=== PATIENT | male | born 1945 | race Caucasian/White ===

== ENCOUNTER 2017-02-11 23:23 | Emergency (ER) | payer OTHER, MEDICARE ==
[~2017-02-11] VITALS: Ht 177.8 cm; Wt 87.3 kg
[2017-02-11 23:28] VITALS: TEMP 36.5; Ht 177.8 cm; Wt 87.3 kg
[2017-02-12 01:13] VITALS: BP 136/79; PULSE 64; O2SAT 97
--- NOTE | 2017-02-12 04:42 | EMERGENCY ROOM VISIT NOTE ---
History Report prepared by Mayito: Ashley Welch Under the Supervision of: Dr. Sadi Miller M.D. First contact with patient: 23:32 Chief Complaint: URINARY SYMPTOMS Stated Complaint: URINARY TRACT INFECTION History of Present Illness The patient is a 72 year old male who presents to the Emergency Room with complaints of worsening urinary symptoms starting 3 days ago. The patient states that he had a catheter placed following a parathyroid surgery. He states that this catheter was removed 3 days ago. The patient reports that since then he has had difficulty and pain urinating. He describes the pain as a pressure and burning sensation. The patient states that he was diagnosed with a UTI by Dr. Benjamin's office today. He reports that he was put on Cipro and cultures were taken. He reports that he has had this happen before and was put on antibiotics for it. He notes that they had difficulty placing the catheter in [place] last week. The patient currently rates his pain as a 6/10 in severity. The patient complains of low appetite and abdominal pain. Pt denies LOC, headache, fevers, chills, diaphoresis, visual changes, neck pain , chest pain, breathing difficulties, nausea, vomiting, back pain, melena, hematochezia, numbness, weakness, lymphadenopathy, rash, or other complaints. Source of History: patient Onset: 3 days ago Position: other (global) Symptom Intensity: 6/10 Quality: pressure, burning Timing: worsening Associated Symptoms: + abdominal pain Note: The patient complains of low appetite. Review of Systems See HPI for pertinent positives and negatives. A total of ten systems were reviewed and were otherwise negative. 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) (3) Urinary retention Surgical Problems: (1) [place] teeth removed Family History Cancer Heart disease Hypertension Social History Smoking Status: Former Smoker Alcohol Use: none Marital Status: Housing Status: lives with significant other Occupation Status: retired Current/Historical Medications Scheduled Aspirin (Aspirin Ec), 81 MG PO DAILY Calcium/Vitamin D (Os-[place] 500 Plus D), 1 TAB PO DAILY Ciprofloxacin Hcl (Cipro), 1 TAB PO BID Ezetimibe (Zetia), 10 MG PO DAILY Fish Oil ([place]-3), 2 CAP PO DAILY Multivitamin (Multivitamin), 1 TAB PO DAILY Tamsulosin Hcl (Flomax), 0.8 MG PO DAILY Scheduled PRN Acetaminophen (Tylenol), 650 MG PO Q4 PRN for Pain or Fever Allergies Coded Allergies: Atorvastatin (Verified Adverse Reaction, Intermediate, myalgia, 02/12/17) Levofloxacin (Verified Adverse Reaction, Intermediate, myalgia, 02/12/17) OK TO GIVE LVQ PER DR RAMOS Physical Exam Vital Signs Date Time Temp Pulse Resp B/P (MAP) Pulse Ox O2 Delivery O2 Flow Rate FiO2 02/12/17 01:13 64 16 136/79 97 Room Air 02/11/17 23:28 36.5 65 16 186/79 96 Room Air Physical Exam GENERAL: Awake, alert, uncomfortable-appearing, in no distress HENT: Normocephalic, atraumatic. Oropharynx unremarkable. EYES: Normal conjunctiva. Sclera non-icteric. NECK: Supple. No nuchal rigidity. FROM. No JVD. RESPIRATORY: Clear to auscultation. CARDIAC: Regular rate, normal rhythm. Extremities warm and well perfused. Pulses equal. ABDOMEN: Soft, non-distended. No tenderness to palpation. No rebound or guarding. No masses. RECTAL: Deferred. GENITAL: Normal male genitalia. MUSCULOSKELETAL: Chest examination reveals no tenderness. The back is symmetrical on inspection without obvious abnormality. There is no CVA tenderness to palpation. No joint edema. LOWER EXTREMITIES: Calves are equal size bilaterally and non-tender. No edema. No discoloration. NEURO: Normal sensorium. No sensory or motor deficits noted. SKIN: No rash or jaundice noted. Medical Decision & Procedures Procedure Procedure: Sanders catheter placement. Indication: Urinary retention. A 14 Norwegian Sanders catheter was placed by de in the standard fashion without complication utilizing sterile technique. The patient was prepped. The catheter was placed into the urethra. Good urine flow was obtained. There was no issues inflating the balloon. ED Course 5455: The patient was evaluated in room A3. A complete history and physical exam was performed. 0058: I reevaluated the patient. Discussed results and discharge instructions: He verbalized understanding and agreement. The patient is ready for discharge. Medical Decision Triage Nursing notes reviewed. The patient's presentation and history were concerning for urinary retention Etiologies such as urinary retention, urethral stricture, infection, bladder outlet obstruction, renal issues, as well as others were entertained. The patient had a bladder scan performed. He had 500 mL noted on bladder scan. He was quite uncomfortable. Nursing attempted to place a Sanders catheter but were unsuccessful passing a 16 Norwegian catheter. I evaluated the patient and was able to place a 14 Norwegian catheter. This did meet with some mild resistance raising some concern that he may have a developing urethral stricture. After the catheter was placed the patient had resolution of symptoms. He is currently taking Cipro. He notes having a reaction to Levaquin one time but has taken it since without difficulty. He is tolerating the Cipro. Review of his prior cultures revealed that he did have a Pseudomonas infection and therefore I believe continuing the Cipro would be appropriate until his current culture is done. The patient was educated about the catheter. He will follow-up closely with urology. If he worsens in any way he will come back. I gave my usual and customary discussion regarding this issue. By the evaluation outlined above other emergent etiologies such as those listed in the differential, as well as others, were deemed relatively unlikely. The patient was educated about the findings as listed above. All questions were answered and the patient was pleased with the treatment. Return instructions were outlined and the patient was discharged in stable condition. The patient was referred to his urologist for follow-up for a recheck of the current condition. Medication Reconcilliation Current Medication List: was personally reviewed by me Blood Pressure Screening Patient's blood pressure: Elevated blood pressure Blood pressure disposition: Elevated BP felt to be situational Impression Primary Impression: Urinary retention Scribe Attestation The scribe's documentation has been prepared under my direction and personally reviewed by me in its entirety. I confirm that the note above accurately reflects all work, treatment, procedures, and medical decision making performed by me. Departure Information Dispostion Home / Self-Care Referrals Alayna Argueta M.D. (PCP) Forms HOME CARE DOCUMENTATION FORM, IMPORTANT VISIT INFORMATION Patient Instructions My [facility] Additional Instructions Continue the Cipro as prescribed. All antibiotics can cause diarrhea. If this occurs and you feel worse or it does not resolve in 1-2 days follow up with your doctor or return to the Emergency Department as this could be signs of serious underlying problems. Any medication can cause an allergic reaction or complication, stop the pills immediately and return to the ER for rash, hives , breathing difficulties, tendon pain, tendon injury, or swelling. Acetaminophen(Tylenol) may be used for fever or pain. Use 1000mg every six hours as needed. Avoid using more than 3000mg in a 24 hour period. Continue current medications. Care for the catheter as discussed. Do not pull on the catheter. Use the leg bag during the day and the large bag at night when you are sleeping. Drain the bag frequently. Do not let it fill completely. Return to the emergency department for fevers, abdominal pain, catheter problems , or as needed. Followup with the [facility] at [phone]. Call tomorrow for an appointment.
== END 2017-02-12 01:30 | disposition home or self-care (01) ==
LOC: C.EDB 23:24 → C.EDA 02-12 01:30
DX: R33.9 Retention of urine, unspecified (principal); N39.0 Urinary tract infection, site not specified; R03.0 Elevated blood-pressure reading, without diagnosis of hypertension; Z82.49 Family history of ischemic heart disease and other diseases of the circulatory system; Z87.891 Personal history of nicotine dependence

== ENCOUNTER → 2017-02-11 | Outpatient (CLI) | payer OTHER, MEDICARE ==
[~2017-02-11] MED LIST: ACET-1311 PO; ASPI81TA28 PO; CALC500C70 PO; CIPR1TAB10 PO; EZET10TA63 PO; MULT-506 PO; OMEG10007 PO; TAMS0.4C38 PO
== END | disposition home or self-care (01) ==
LOC: C.LABSPEC 17:08
PROVIDERS: ATTEND Urology
DX: N39.0 Urinary tract infection, site not specified (principal)

== ENCOUNTER → 2017-05-28 | Outpatient (CLI) | payer OTHER, MEDICARE | END | disposition home or self-care (01) | LOC: C.LABBC 12:58 | PROVIDERS: ATTEND Urology | DX: Z00.00 Encounter for general adult medical examination without abnormal findings (principal); N40.1 Benign prostatic hyperplasia with lower urinary tract symptoms ==

== ENCOUNTER 2018-07-11 02:35 | Inpatient (IN) ==
[2018-07-11] MEDS ORDERED: SODIUM CHLORIDE 0.9% 250 ML IV PRN (02:51)
[2018-07-11] MEDS ORDERED: SODIUM CHLORIDE 0.9% 1000ML 1,000 ML IV ONE (02:51)
[2018-07-11] MEDS ORDERED: PANTOprazole 80 MG in DEXTROSE 5% 100 ML IV STA (02:53)
[2018-07-11 03:01] LABS: Basophils # (auto) 0.06 K/uL (0-0.2); Basophils % (auto) 0.6 %; Eosinophils # (auto) 0.15 K/uL (0-0.5); Eosinophils % (auto) 1.6 %; Hemoglobin 13.4 g/dL (14.0-18.0); Immature Granulocytes # (auto) 0.04 K/uL (0.00-0.02); Immature Granulocytes % (auto) 0.4 %; Lymphocytes % (auto) 40.1 %; Mean Corpuscular Hgb Conc 33.5 g/dL (32-36); Mean Corpuscular Volume 89.3 fL (80-100); Mean Platelet Volume 10.2 fL (7.4-10.4); Monocytes # (auto) 0.92 K/uL (0.11-0.59); Monocytes % (auto) 9.7 %; Neutrophils % (auto) 47.6 %; Platelet Count 304 K/uL (130-400); RDW Coefficient of Variation 12.8 % (11.5-14.5); RDW Standard Deviation 41.5 fL (36.4-46.3); Red Blood Count 4.48 M/uL (4.7-6.1); White Blood Count 9.47 K/uL (4.8-10.8)
[2018-07-11 03:09] LABS: iSTAT Creatinine 1.1 mg/dl (0.6-1.3); iSTAT Hemoglobin 13.3 g/dl (14.0-18.0); iSTAT Ionized Calcium 1.13 mmol/l (1.12-1.32); iSTAT Potassium 3.9 mEq/L (3.3-5.0)
[2018-07-11 03:11] LABS: Partial Thromboplastin Ratio 0.8; Partial Thromboplastin Time 21.4 Seconds (21.0-31.0); Prothrombin Time 10.4 Seconds (9.0-12.0)
[2018-07-11 03:20] LABS: Alanine Aminotransferase 28 U/L (12-78); Aspartate Aminotransferase 23 U/L (15-37); Bilirubin Direct < 0.1 mg/dl (0-0.2); Blood Urea Nitrogen 23 mg/dl (7-18); Calcium 7.9 mg/dl (8.5-10.1); Carbon Dioxide 26 mmol/L (21-32); Chloride 111 mmol/L (98-107); Creatinine Clr Calc Pharmacy 62.3 ml/min; Est GFR (African American) 69.8; Est GFR (Non-African American) 60.2; Glucose 141 mg/dl (70-99); Magnesium 2.2 mg/dl (1.8-2.4); Sodium 143 mmol/L (136-145)
[2018-07-11 03:25] LABS: Alkaline Phosphatase 57 U/L (45-117); Bilirubin,Total < 0.1 mg/dl (0.2-1); Troponin I < 0.015 ng/ml (0-0.045)
[2018-07-11] MEDS ORDERED: IOVERSOL 100ml IV PRN (04:00)
[2018-07-11] MEDS ORDERED: cefOXitin 2,000 MG/60 ML BAG IV STA (04:28)
--- NOTE | 2018-07-11 05:55 | History & Physical Report ---
Date of Service July 11, 2018 Assessment & Plan (1) GI bleed: 73-year-old male with a past medical history of diverticulosis with GI bleed, HLD, BPH presents with bright red blood per rectum. GI bleed in the setting of diverticulosis/diverticulitis? Patient's been typed and screened, H&H every 4 hours x3 Continue fluids, D5/potassium/normal saline at 110 cc/h ED started cefoxitinwe will continue, if CT read shows diverticulitis, would recommend switching to Zosyn Given Protonix 80 mg IV in the ED. We will continue with famotidine IV twice dailylow suspicion of upper GI bleed (Protonix is on back order) Gastroenterology consult, keep n.p.o. Hypotensive on arrival Continue IV fluids 2 large bore IVs placed BPH Continue tamsulosin Patient reports a significant history of urinary retention and UTI following surgery Consider catheterization of the procedure needs to be donepatient states that he would refuse straight catheterization from nursing in the situation Code Full DVT prophylaxis SCDs/ambulate FEN Keep n.p.o. IV fluids 110 cc/h (2) Diverticulitis: (3) Diverticulosis: (4) BPH (benign prostatic hyperplasia): History of Present Illness Chief Complaint: GI bleed Primary Care Provider: Alayna Argueta MD 73-year-old male with a past medical history of diverticulosis, hyperlipidemia and BPH presents with bright blood per rectum. The patient states that he had a similar episode 10 years ago and was hospitalized for significant GI bleed that required transfusion. The patient receives colonoscopies every 5 years (history of benign polyps) and states that he has been found to have diverticulosisparticular site of bleed was not elucidated last time. Patient states that he had a little blood with bowel movement at 11 PM and was subsequently woken at 2 AM with a large bowel movement with bright red blood. The patient denies abdominal pain, nausea/vomiting/diarrhea. He denies a family history of colon cancer. He denies personal history of peptic ulcer disease. Family history includes prostate cancer in his brother. Review of systems Constitutional; the patient denies fevers, chills, night sweats Chest; the patient denies chest pain, shortness of breath, cough, runny nose, sore throat Abdomen; as mentioned above MSK; no calf tenderness Allergies Allergy/AdvReac Type Severity Reaction Status Date / Time atorvastatin AdvReac Intermediate myalgia Verified 07/11/18 04:19 levofloxacin AdvReac Intermediate myalgia Verified 07/11/18 04:19 Home Medications Home Medications Medication Instructions Recorded Confirmed Type ezetimibe 10 mg PO DAILY 07/11/18 07/11/18 History multivitamin 1 tab PO DAILY 07/11/18 07/11/18 History omega 7-[id number]-yor-fish oil [Fish Oil] 1 cap PO DAILY 07/11/18 07/11/18 History tamsulosin 0.8 mg PO HS 07/11/18 07/11/18 History Past Med/Surg History Medical History Pseudomonas urinary tract infection Urinary retention (Resolved) Diverticulitis History of rectal bleeding Surgical History [place] teeth removed (Resolved) Family History Other Family history non-contributory Social History Preferred Language: Turkmen Beliefs That Will Affect Care: None marital status: Current Living Situation: Spouse current occupational status: retired Feels Safe at Home: Yes Safety Concerns: Feels Safe At This Time Smoking Status: Never smoker Hx Alcohol Use: No Hx Substance Use: No Review of Systems All systems reviewed & are unremarkable except as noted in HPI & below Physical Exam Vital Signs (Past 24 Hours): Last Vital Signs Temp 36.3 C L 07/11/18 02:39 Pulse 52 L 07/11/18 04:35 Resp 17 07/11/18 04:35 BP 118/54 L 07/11/18 04:35 Pulse Ox 99 07/11/18 04:35 Constitutional: WD/WN, vitals as above Eyes: PERRL, conjunctivae normal, anicteric sclerae ENMT: external ear and nose normal, oropharynx normal Neck: trachea midline, no thyromegaly Respiratory: normal respiratory effort, lungs clear to auscultation Cardiovascular: RRR, no murmur, no edema Gastrointestinal (Abdomen): normal bowel sounds, soft, nontender, no hepatosplenomegaly Musculoskeletal: no cyanosis or clubbing, extremities motor strength 5/5 Skin: no rashes, warm and dry Psychiatric: A+Ox3, euthymic affect Results & Data Laboratory Results Laboratory Last Values WBC 9.47 K/uL (4.8-10.8) 07/11/18 02:52 RBC 4.48 M/uL (4.7-6.1) L 07/11/18 02:52 Hgb 13.4 g/dL (14.0-18.0) L 07/11/18 02:52 POC Hgb 13.3 g/dl (14.0-18.0) L 07/11/18 02:55 Hct 40.0 % (42-52) L 07/11/18 02:52 POC Hct 39 % (42-52) L 07/11/18 02:55 MCV 89.3 fL (80-100) 07/11/18 02:52 MCH 29.9 pg (25-34) 07/11/18 02:52 MCHC 33.5 g/dL (32-36) 07/11/18 02:52 RDW Std Deviation 41.5 fL (36.4-46.3) 07/11/18 02:52 RDW Coeff of Vera 12.8 % (11.5-14.5) 07/11/18 02:52 Plt Count 304 K/uL (130-400) 07/11/18 02:52 MPV 10.2 fL (7.4-10.4) 07/11/18 02:52 Immature Gran % (Auto) 0.4 % 07/11/18 02:52 Neut % (Auto) 47.6 % 07/11/18 02:52 Lymph % (Auto) 40.1 % 07/11/18 02:52 Rooks % (Auto) 9.7 % 07/11/18 02:52 Eos % (Auto) 1.6 % 07/11/18 02:52 Baso % (Auto) 0.6 % 07/11/18 02:52 Immature Gran # (Auto) 0.04 K/uL (0.00-0.02) H 07/11/18 02:52 Neut # (Auto) 4.50 K/uL (1.4-6.5) 07/11/18 02:52 Lymph # (Auto) 3.80 K/uL (1.2-3.4) H 07/11/18 02:52 Rooks # (Auto) 0.92 K/uL (0.11-0.59) H 07/11/18 02:52 Eos # (Auto) 0.15 K/uL (0-0.5) 07/11/18 02:52 Baso # (Auto) 0.06 K/uL (0-0.2) 07/11/18 02:52 PT 10.4 Seconds (9.0-12.0) 07/11/18 02:52 INR 1.0 (0.9-1.1) 07/11/18 02:52 APTT 21.4 Seconds (21.0-31.0) 07/11/18 02:52 PTT Ratio 0.8 07/11/18 02:52 POC Sodium 143 mEq/L (135-144) 07/11/18 02:55 Sodium 143 mmol/L (136-145) 07/11/18 02:52 POC Potassium 3.9 mEq/L (3.3-5.0) 07/11/18 02:55 Potassium 4.0 mmol/L (3.5-5.1) 07/11/18 02:52 POC Chloride 107 mEq/L (101-112) 07/11/18 02:55 Chloride 111 mmol/L (98-107) H 07/11/18 02:52 Carbon Dioxide 26 mmol/L (21-32) 07/11/18 02:52 POC Total CO2 23 mEq/l (24-31) L 07/11/18 02:55 Anion Gap 6.0 (3-11) 07/11/18 02:52 POC Anion Gap 18.0 mmol/L (16-25) 07/11/18 02:55 POC BUN 22 mg/dl (7-18) H 07/11/18 02:55 BUN 23 mg/dl (7-18) H 07/11/18 02:52 Creatinine 1.19 mg/dl (0.6-1.4) 07/11/18 02:52 POC Creatinine 1.1 mg/dl (0.6-1.3) 07/11/18 02:55 Est Cr Clr Drug Dosing 62.3 ml/min 07/11/18 02:52 Est GFR ( Amer) 69.8 07/11/18 02:52 Est GFR (Non-Af Amer) 60.2 04/08/19 02:52 BUN/Creatinine Ratio 19.0 (10-20) 07/11/18 02:52 Glucose 141 mg/dl (70-99) H 07/11/18 02:52 POC Glucose (other) 143 mg/dl (70-99) H 07/11/18 02:55 Calcium 7.9 mg/dl (8.5-10.1) L 07/11/18 02:52 POC Ioniz Calcium Jori 1.13 mmol/l (1.12-1.32) 07/11/18 02:55 Magnesium 2.2 mg/dl (1.8-2.4) 07/11/18 02:52 Total Bilirubin < 0.1 mg/dl (0.2-1) L 07/11/18 02:52 Direct Bilirubin < 0.1 mg/dl (0-0.2) 07/11/18 02:52 AST 23 U/L (15-37) 07/11/18 02:52 ALT 28 U/L (12-78) 07/11/18 02:52 Alkaline Phosphatase 57 U/L (45-117) 07/11/18 02:52 Troponin I < 0.015 ng/ml (0-0.045) 07/11/18 02:52 Total Protein 6.0 gm/dl (6.4-8.2) L 07/11/18 02:52 Albumin 3.0 gm/dl (3.4-5.0) L 07/11/18 02:52 Lipase 151 U/L (73-393) 07/11/18 02:52 Blood Type A Positive 07/11/18 03:06 Antibody Screen NEGATIVE 07/11/18 03:06 Crossmatch See Detail 07/11/18 03:06 Supervising Physician Co-Signing Physician Notes Attending addendum: I have physically seen this patient, have supervised the medical residents activities, and agree with the H&P unless as otherwise noted. Assessment and Plan: GI bleed/bright red blood per rectum/history of diverticular bleed-- Admit to monitored bed. NPO except essential medications H&H every 6 hours. Type and screen Protonix IV. IV fluids. Zosyn 4.5 g IV every 8 hours. Consult gastroenterology. Remainder of orders and notations as noted. Resident Activity Tracking Resident Involvement: Resident Care Provided Care Provided: Adult Hospital Medicine
--- NOTE | 2018-07-11 06:00 | Emergency Department Note ---
Entered by Ashley Welch acting as a scribe for ED Provider Note Name: Deepak Reilly Age: 73 Arrives Via: Triage Informant: Patient CC: Rectal Bleed HPI: The patient is a 73 year old male who presents to the Emergency Room with complaints of an episode of rectal bleeding starting tonight. The patient states that he has had this once before 12 years ago, but they never determined what it was from. He reports that he ended up needing a blood transfusion. He states that because of it, they ordered a bleeding scan. He states that he felt fine all day today and then it suddenly hit him. He reports that he felt like he was going to pass out. He notes that he has mild lower abdominal pain. He states th at this seems almost as bad as last time. The patient complains of feeling hot. The patient notes that he takes a baby aspirin daily. The patient denies any other blood thinners, taking Ibuprofen chest pain, shortness of breath, recent falls/injuries, leg swelling, hematuria, taking any blood pressure medication, taking any medication for his heart rate, and nausea. He notes that he exercises often and his heart rate is around 50. ROS: See above HPI for pertinent positives & negatives. A total of 10 systems reviewed and were otherwise negative. Past Medical History: Hx rectal bleeding, Diverticulitis, Pseudomonas UTI, Urinary Retention Past Surgical History: Ivanhoe Teeth Removal Family History: Non-contributory Social History: The patient is and lives with his spouse. He is retired and has never smoked. Home Medications: Tylenol, Aspirin, Calcium/Vitamin, Cipro, Zetia, Fish Oil, Multivitamin, Flomax Allergies Atorvastatin, Levofloxacin Physical: Vitals: Temperature: 36.3, Temperature Source: Oral, Pulse Rate: 70, Respiratory Rate: 16, Blood Pressure: 73/49, Blood Pressure Mean: 57, O2 Saturation: 98% on Room Air Exam: GENERAL: Patient is ill appearing, diaphoretic, and pale. Bleeding heavily from rectum and in no acute distress. EYES: No scleral icterus, unremarkable pupils. ENT: Mucous membranes moist, no nasal congestion. NECK: No masses appreciated, no meningismus, trachea is midline. RESPIRATORY: No dyspnea. Clear to auscultation and equal bilaterally. No wheeze, no rhonchi. CARDIOVASCULAR: Regular rate and rhythm. No murmurs, rubs, gallops appreciated. GASTROINTESTINAL: Abdomen soft, non-tender, no peritonitis. Bowel sounds positive. No masses appreciated. BACK: No midline tenderness, no CVA tenderness EXTREMITIES: Normal motion all extremities, no cyanosis, no edema. NEUROLOGIC: Alert and oriented, no acute motor or sensory deficits, no focal weakness, cranial nerves grossly intact. SKIN: No rash, no jaundice, pale and diaphoretic. ED Course: Prior Medical Record, Triage/Nursing Notes, Medications, Allergies reviewed by Me Vital Signs: reviewed and remarkable for Hypotension, Bradycardia Labs: Reviewed and remarkable for mild anemia Interventions: Imaging: [facility] Radiologist interpretation reviewed by me: "CT ABDOMEN & PELVIS With Contrast: There is wall thickening of the cecum and proximal ascending colon. Mild adjacent edema and stranding with associated diverticula. Differential considerations include nonspecific colitis versus mild acute diverticulitis. Recommend followup to ensure resolution and exclude underlying occult mass. Normal appendix. Air-fluid levels in the colon can be seen in the setting of gastroenteriti s/diarrhea. No small bowel obstruction. Enlarged and heterogeneous prostate with encroachment into bladder base. 2.4 cm solid-appearing lesion along the anterior margin of the liver on image 21 of series 2. No radiopaque gallstones. No pancreatitis. Ectopic left pelvic kidney. No hydronephrosis. Small bilateral renal cysts. Normal caliber abdominal aorta. Radiologist: Juvencio Clark M.D." EKG: Per My Interpretation: Indication Hypotension: Sinus kamaljit 48 bpm without ectopy nor ischemia. There is RBBB. QTC 423. Consults: 0519: I reviewed the patient's case with Dr. Jalloh- [facility] Hospitalist. He will evaluate the patient for further management. Reassessments/Times: 0246: The patient was evaluated in room A4B, and a complete history and physical examination were performed. I requested nursing staff to obtain 2 large bore IVs and start 1L of normal saline. 0307: I reevaluated the patient and he has 2 large bore IVs. His blood pressure is improving and he is feeling better. 0327: I reevaluated the patient and he is feeling alright. He is still having some rectal bleeding. His blood pressure is 106/55 after 1L of fluid. He is agreeable to a CT of the abdomen. 0402: I paged the [facility] Hospitalist at this time. 0444: I reevaluated the patient and updated him on his test results at this carlos a e. I discussed the treatment plan with him. They verbally agrees and understands. 0519: I reviewed the patient's case with Dr. Jalloh- [facility] Hospitalist. He will evaluate the patient for further management. Blood pressure: Low- Further Management by Hospitalist Disposition: Hospitalization Differentials: Differential diagnosis includes etiologies such as diverticulosis, AVM, coagulopathy, colitis, inflammatory bowel disease, malignancy, Arti-Chavez tear, esophagitis, peptic ulcer disease, variceal bleed, gastritis, epistaxis, fissure, hemorrhoids, as well as others were entertained. Medical Decision Making: Pleasant 73 yr old male arrives hypotensive, pale and quite ill appearing with large GI Bleed. Given 1 L IV fluids and laid back in bed. BP improved rapidly as did his evaluation. HgB just mildly anemic on arrival. Given empiric Protonix on as well as Type/Cross for 2. Taken to CT revealing what appears to be diverticulitis vs colitis. Given pure blood in BM I do not feel we can sent study on it. He was given IV mefoxin for abx coverage. He remained stable with intermittent bleeding but without further hypotension while in ED. Will hold on transfusion for now. Hospitalist consulted who will bring him in for further management. Impression: GI Bleed Diverticulitis Acute Hypotension Brian Wellington MD The scribe's documentation has been prepared under my direction and personally reviewed by me in its entirety. I confirm that the note above accurately reflects all work, treatment, procedures, and medical decision making performed by me. Impression & Plan GI bleed, Diverticulitis, Acute hypotension Past Med/Surg History Medical History Pseudomonas urinary tract infection Urinary retention (Resolved) Diverticulitis History of rectal bleeding Surgical History Ivanhoe teeth removed (Resolved) Family History Other Family history non-contributory Social History marital status: Current Living Situation: Spouse current occupational status: retired Feels Safe at Home: Yes Smoking Status: Never smoker Results & Data Vital Signs Vital Signs - 24 hr 04/08/19 02:39 07/11/18 02:45 07/11/18 02:51 Temperature 36.3 C L Temperature Source Oral Sepsis Recent Fever Within 48 Hours No Sepsis New/Unexplained Change in Mental Status No Sepsis Action Taken by Nursing No Action Required Pulse Rate 70 50 L Pulse Rate [Apical] Pulse Rate from SpO2 Sensor Pulse Rhythm [Apical] Pulse Strength [Apical] Respiratory Rate 16 19 Respiratory Effort / Characteristics Respiratory Depth Respiratory Pattern Blood Pressure 73/49 L 132/63 Blood Pressure [Right Arm] Blood Pressure Mean 57 86 Blood Pressure Mean [Right Arm] Blood Pressure Position [Right Arm] Pulse Oximetry 98 98 97 Oxygen Delivery Method Room Air Room Air 07/11/18 03:00 07/11/18 03:02 07/11/18 03:11 Temperature Temperature Source Sepsis Recent Fever Within 48 Hours Sepsis New/Unexplained Change in Mental Status Sepsis Action Taken by Nursing Pulse Rate 55 L 60 48 L Pulse Rate [Apical] Pulse Rate from SpO2 Sensor Pulse Rhythm [Apical] Pulse Strength [Apical] Respiratory Rate 21 24 19 Respiratory Effort / Characteristics Respiratory Depth Respiratory Pattern Blood Pressure 107/54 L 97/57 L Blood Pressure [Right Arm] Blood Pressure Mean 71 70 Blood Pressure Mean [Right Arm] Blood Pressure Position [Right Arm] Pulse Oximetry Oxygen Delivery Method 07/11/18 03:15 07/11/18 03:16 07/11/18 03:20 Temperature Temperature Source Sepsis Recent Fever Within 48 Hours Sepsis New/Unexplained Change in Mental Status Sepsis Action Taken by Nursing Pulse Rate 46 L 47 L 47 L Pulse Rate [Apical] Pulse Rate from SpO2 Sensor 47 L 47 L 47 L Pulse Rhythm [Apical] Pulse Strength [Apical] Respiratory Rate 15 13 12 Respiratory Effort / Characteristics Respiratory Depth Respiratory Pattern Blood Pressure 97/57 L 106/53 L Blood Pressure [Right Arm] Blood Pressure Mean 70 70 Blood Pressure Mean [Right Arm] Blood Pressure Position [Right Arm] Pulse Oximetry 95 97 96 Oxygen Delivery Method 07/11/18 03:30 07/11/18 03:31 07/11/18 03:45 Temperature Temperature Source Sepsis Recent Fever Within 48 Hours Sepsis New/Unexplained Change in Mental Status Sepsis Action Taken by Nursing Pulse Rate 46 L 46 L 47 L Pulse Rate [Apical] Pulse Rate from SpO2 Sensor 46 L 47 L Pulse Rhythm [Apical] Pulse Strength [Apical] Respiratory Rate 18 18 20 Respiratory Effort / Characteristics Respiratory Depth Respiratory Pattern Blood Pressure 105/51 L Blood Pressure [Right Arm] Blood Pressure Mean 69 Blood Pressure Mean [Right Arm] Blood Pressure Position [Right Arm] Pulse Oximetry 99 96 Oxygen Delivery Method 07/11/18 03:46 07/11/18 04:00 07/11/18 04:01 Temperature Temperature Source Sepsis Recent Fever Within 48 Hours Sepsis New/Unexplained Change in Mental Status Sepsis Action Taken by Nursing Pulse Rate 58 L 52 L 50 L Pulse Rate [Apical] Pulse Rate from SpO2 Sensor 49 L 52 L 51 L Pulse Rhythm [Apical] Pulse Strength [Apical] Respiratory Rate 19 19 16 Respiratory Effort / Characteristics Respiratory Depth Respiratory Pattern Blood Pressure 120/57 L 129/46 L Blood Pressure [Right Arm] Blood Pressure Mean 78 73 Blood Pressure Mean [Right Arm] Blood Pressure Position [Right Arm] Pulse Oximetry 97 98 Oxygen Delivery Method 07/11/18 04:15 07/11/18 04:16 07/11/18 04:30 Temperature Temperature Source Sepsis Recent Fever Within 48 Hours Sepsis New/Unexplained Change in Mental Status Sepsis Action Taken by Nursing Pulse Rate 49 L 52 L 51 L Pulse Rate [Apical] Pulse Rate from SpO2 Sensor 50 L 52 L 51 L Pulse Rhythm [Apical] Pulse Strength [Apical] Respiratory Rate 14 18 18 Respiratory Effort / Characteristics Respiratory Depth Respiratory Pattern Blood Pressure 135/57 L Blood Pressure [Right Arm] Blood Pressure Mean 83 Blood Pressure Mean [Right Arm] Blood Pressure Position [Right Arm] Pulse Oximetry 99 99 98 Oxygen Delivery Method 07/11/18 04:31 07/11/18 04:35 07/11/18 05:51 Temperature Temperature Source Sepsis Recent Fever Within 48 Hours Sepsis New/Unexplained Change in Mental Status Sepsis Action Taken by Nursing Pulse Rate 51 L Pulse Rate [Apical] 52 L 53 L Pulse Rate from SpO2 Sensor 52 L Pulse Rhythm [Apical] Regular Regular Pulse Strength [Apical] Normal Normal Respiratory Rate 16 17 18 Respiratory Effort / Characteristics Non-Labored Spontaneous Non-Labored Spontaneous Respiratory Depth Normal Normal Respiratory Pattern Regular Regular Blood Pressure 118/54 L Blood Pressure [Right Arm] 118/54 L 132/59 L Blood Pressure Mean 75 Blood Pressure Mean [Right Arm] 75 83 Blood Pressure Position [Right Arm] Lying Lying Pulse Oximetry 98 99 97 Oxygen Delivery Method Room Air Room Air Home Medications Current Medication List: was personally reviewed by me Laboratory Data Attestation: I reviewed the patient's lab results. Result diagrams: 07/11/18 02:52 07/11/18 02:52 Lab Results 07/11/18 07/11/18 07/11/18 Range/Units 02:52 02:52 02:52 WBC 9.47 (4.8-10.8) K/uL RBC 4.48 L (4.7-6.1) M/uL Hgb 13.4 L (14.0-18.0) g/dL POC Hgb (14.0-18.0) g/dl Hct 40.0 L (42-52) % POC Hct (42-52) % MCV 89.3 (80-100) fL MCH 29.9 (25-34) pg MCHC 33.5 (32-36) g/dL RDW Std Deviation 41.5 (36.4-46.3) fL RDW Coeff of Vera 12.8 (11.5-14.5) % Plt Count 304 (130-400) K/uL MPV 10.2 (7.4-10.4) fL Immature Gran % (Auto) 0.4 % Neut % (Auto) 47.6 % Lymph % (Auto) 40.1 % [place] % (Auto) 9.7 % Eos % (Auto) 1.6 % Baso % (Auto) 0.6 % Immature Gran # (Auto) 0.04 H (0.00-0.02) K/uL Neut # (Auto) 4.50 (1.4-6.5) K/uL Lymph # (Auto) 3.80 H (1.2-3.4) K/uL [place] # (Auto) 0.92 H (0.11-0.59) K/uL Eos # (Auto) 0.15 (0-0.5) K/uL Baso # (Auto) 0.06 (0-0.2) K/uL PT 10.4 (9.0-12.0) Seconds INR 1.0 (0.9-1.1) APTT 21.4 (21.0-31.0) Seconds PTT Ratio 0.8 POC Sodium (135-144) mEq/L Sodium 143 (136-145) mmol/L POC Potassium (3.3-5.0) mEq/L Potassium 4.0 (3.5-5.1) mmol/L POC Chloride (101-112) mEq/L Chloride 111 H (98-107) mmol/L Carbon Dioxide 26 (21-32) mmol/L POC Total CO2 (24-31) mEq/l Anion Gap 6.0 (3-11) POC Anion Gap (16-25) mmol/L POC BUN (7-18) mg/dl BUN 23 H (7-18) mg/dl Creatinine 1.19 (0.6-1.4) mg/dl POC Creatinine (0.6-1.3) mg/dl Est Cr Clr Drug Dosing 62.3 ml/min Est GFR ( Amer) 69.8 Est GFR (Non-Af Amer) 60.2 BUN/Creatinine Ratio 19.0 (10-20) Glucose 141 H (70-99) mg/dl POC Glucose (other) (70-99) mg/dl Calcium 7.9 L (8.5-10.1) mg/dl POC Ioniz Calcium Jori (1.12-1.32) mmol/l Magnesium 2.2 (1.8-2.4) mg/dl Total Bilirubin < 0.1 L (0.2-1) mg/dl Direct Bilirubin < 0.1 (0-0.2) mg/dl AST 23 (15-37) U/L ALT 28 (12-78) U/L Alkaline Phosphatase 57 (45-117) U/L Troponin I < 0.015 (0-0.045) ng/ml Total Protein 6.0 L (6.4-8.2) gm/dl Albumin 3.0 L (3.4-5.0) gm/dl Lipase 151 (73-393) U/L Blood Type Antibody Screen Crossmatch 07/11/18 07/11/18 Range/Units 02:55 03:06 WBC (4.8-10.8) K/uL RBC (4.7-6.1) M/uL Hgb (14.0-18.0) g/dL POC Hgb 13.3 L (14.0-18.0) g/dl Hct (42-52) % POC Hct 39 L (42-52) % MCV (80-100) fL MCH (25-34) pg MCHC (32-36) g/dL RDW Std Deviation (36.4-46.3) fL RDW Coeff of Vera (11.5-14.5) % Plt Count (130-400) K/uL MPV (7.4-10.4) fL Immature Gran % (Auto) % Neut % (Auto) % Lymph % (Auto) % [place] % (Auto) % Eos % (Auto) % Baso % (Auto) % Immature Gran # (Auto) (0.00-0.02) K/uL Neut # (Auto) (1.4-6.5) K/uL Lymph # (Auto) (1.2-3.4) K/uL [place] # (Auto) (0.11-0.59) K/uL Eos # (Auto) (0-0.5) K/uL Baso # (Auto) (0-0.2) K/uL PT (9.0-12.0) Seconds INR (0.9-1.1) APTT (21.0-31.0) Seconds PTT Ratio POC Sodium 143 (135-144) mEq/L Sodium (136-145) mmol/L POC Potassium 3.9 (3.3-5.0) mEq/L Potassium (3.5-5.1) mmol/L POC Chloride 107 (101-112) mEq/L Chloride (98-107) mmol/L Carbon Dioxide (21-32) mmol/L POC Total CO2 23 L (24-31) mEq/l Anion Gap (3-11) POC Anion Gap 18.0 (16-25) mmol/L POC BUN 22 H (7-18) mg/dl BUN (7-18) mg/dl Creatinine (0.6-1.4) mg/dl POC Creatinine 1.1 (0.6-1.3) mg/dl Est Cr Clr Drug Dosing ml/min Est GFR ( Amer) Est GFR (Non-Af Amer) BUN/Creatinine Ratio (10-20) Glucose (70-99) mg/dl POC Glucose (other) 143 H (70-99) mg/dl Calcium (8.5-10.1) mg/dl POC Ioniz Calcium Jori 1.13 (1.12-1.32) mmol/l Magnesium (1.8-2.4) mg/dl Total Bilirubin (0.2-1) mg/dl Direct Bilirubin (0-0.2) mg/dl AST (15-37) U/L ALT (12-78) U/L Alkaline Phosphatase (45-117) U/L Troponin I (0-0.045) ng/ml Total Protein (6.4-8.2) gm/dl Albumin (3.4-5.0) gm/dl Lipase (73-393) U/L Blood Type A Positive Antibody Screen NEGATIVE Crossmatch See Detail Administered Medications Ioversol (Optiray 320 100ml) 94 ml IV ONCE PRN PRN Reason: Interaction Checking Stop: 07/15/18 03:59 Last Admin: 07/11/18 04:00 Dose: 94 ml Documented by: [id number] Discontinued Medications Sodium Chloride (Nss 1000ml) 1,000 mls @ 999 mls/hr IV .Q1H1M ONE Stop: 07/11/18 03:51 Last Infusion: 07/11/18 03:48 Dose: 0 mls/hr Documented by: [id number] Admin: 07/11/18 03:10 Dose: 999 mls/hr Documented by: [id number] Pantoprazole Sodium 80 mg/ (Dextrose) 100 mls @ 400 mls/hr IV ONE STA Stop: 07/11/18 03:07 Last Infusion: 07/11/18 04:30 Dose: 0 mls/hr Documented by: [id number] Admin: 07/11/18 03:21 Dose: 400 mls/hr Documented by: [id number] Cefoxitin Sodium (Mefoxin) 2,000 mg in 60 mls @ 100 mls/hr IV NOW STA Stop: 07/11/18 05:03 Last Infusion: 07/11/18 05:45 Dose: 0 mls/hr Documented by: [id number] Admin: 07/11/18 05:07 Dose: 100 mls/hr Documented by: [id number] Blood Pressure Blood Pressure Findings: Low blood pressure Blood Pressure Disposition: further management by hospitalist Discharge Plan Visit Data Chief Complaint: Rectal Bleed Stated Complaint: RECTAL BLEEDING ED Provider: Brian Wellington Discharge Problem: GI bleed, Diverticulitis, Acute hypotension Patient Disposition: Being Evaluated by Hospitalist Forms Stand Alone Forms: My [facility] Prescriptions Prescriptions: No Action tamsulosin 0.4 mg capsule 0.8 mg PO HS RF: 0 ezetimibe 10 mg tablet 10 mg PO DAILY RF: 0 multivitamin Tablet 1 tab PO DAILY RF: 0 aspirin [Aspir-81] 81 mg Tablet,Delayed Release (Dr/Ec) 81 mg PO DAILY RF: 0 omega [id number]-fish oil [Fish Oil] 1,000 mg (120 mg-180 mg) Capsule 1 cap PO DAILY RF: 0 Referrals Referrals: Alayna Argueta MD [Primary Care Provider] - Discharge Problem: GI bleed Qualifiers: GI bleed type/associated pathology: diverticulitis Qualified Code(s): K57.93 - Diverticulitis of intestine, part unspecified, without perforation or abscess with bleeding The scribe's documentation has been prepared under my direction and personally reviewed by me in its entirety. I confirm that the note above accurately reflects all work, treatment, procedures, and medical decision making performed by me.
[2018-07-11 06:55] LABS: Hematocrit (blood only) 33.8 % (42-52); Hemoglobin 11.1 g/dL (14.0-18.0)
--- NOTE | 2018-07-11 06:57 | CT Scan Report ---
ABDOMEN AND PELVIS CT WITH IV CONTRAST CT DOSE: 593.89 mGy.cm HISTORY: Acute severe rectal bleeding. heavy GI bleed. Previous Diverticulitis TECHNIQUE: Multiaxial CT images of the abdomen and pelvis were performed following the use of intrave nous contrast. A dose lowering technique was utilized adhering to the principles of ALARA. COMPARISON STUDY: None. FINDINGS: Study is mildly motion degraded. Respiratory motion artifact limits evaluation of the lung bases. Mil d subsegmental bibasilar atelectasis/scarring. No pneumatosis or pneumoperitoneum. The imaged inferio r cardiac chambers are unremarkable. There are several scattered subcentimeter indeterminate hypodense lesions noted throughout the liver measuring up to 7 mm within the left hepatic lobe. Indeterminate hypodense lesion involves the subcap sular left hepatic lobe anteriorly measuring up to 2.5 cm transversely. No evidence of cirrhosis or i ntrahepatic biliary ductal dilation. Gallbladder, spleen, pancreas and adrenal glands are unremarkabl e. Hypodense lesions of the kidneys bilaterally are suggestive of cysts. Left kidney is noted about t he left paracentral upper pelvis. There is no renal or ureteral calculi or obstructive uropathy ident ified. Prostamegaly result in mass effect upon the floor of the urinary bladder. Bladder is partially decompressed demonstrates mild wall thickening. Moderate mixed plaque formation of the abdominal aor ta without aneurysm. There is no adenopathy. Fluid-filled large bowel suggest diarrheal illness. Colonic diverticulosis. There is mild wall thicke anna with pericolonic stranding about the cecum and ascending colon. The appendix and terminal ileum appear normal. No drainable fluid collections. No small bowel obstruction. Soft tissues are unremarka ble. Tiny fat filled periumbilical hernia. Multilevel spondylitic spurring with facet arthrosis. IMPRESSION: 1. Mild wall thickening about the cecum and ascending colon with mild adjacent pericolonic inflammati on is suggestive of a nonspecific colitis. Findings could be correlated with follow-up colonoscopy. 2. Colonic diverticulosis without definite evidence of acute diverticulitis. 3. Fluid-filled loops of large bowel suggest diarrheal illness. 4. Normal appendix. 5. No small bowel obstruction. 6. Left pelvic kidney. 7. Suggestion of hepatic cysts with indeterminate 2.5 cm lesion of the anterior subserosal left hepat ic lobe. Correlate with prior imaging. 8. Additional findings as above. Electronically signed by: Tashi Zeng M.D. 07/11/2018 6:56 AM
[2018-07-11 06:58] LABS: Appearance Urine Clear (Clear); Bilirubin Urine Negative (Negative); Blood Urine Negative (Negative); Color Urine Yellow; Glucose Urine UA Negative (Negative); Ketones Urine Negative (Negative); Leukocyte Esterase Urine Negative (Negative); Nitrite Urine Negative (Negative); Protein Urine Negative (Negative); Specific Gravity Urine > 1.045 (1.000-1.030); Urobilinogen Urine Negative (Negative)
[2018-07-11] MEDS: D5NSS + 20MEQ KCL 20 MEQ/1,000 ML BAG IV SCH ×2 (07:25→16:48)
[2018-07-11] MEDS: FAMOTIDINE 20 MG in SYRINGE 3 ML IV SCH ×2 (08:14→20:36)
[2018-07-11 10:57] LABS: Hematocrit (blood only) 31.3 % (42-52); Hemoglobin 10.4 g/dL (14.0-18.0)
[2018-07-11] MEDS: cefOXitin 2,000 MG in DEXTROSE 5% 50 ML IV SCH ×3 (11:15→23:45)
[2018-07-11 15:20] LABS: Hematocrit (blood only) 30.5 % (42-52); Hemoglobin 10.1 g/dL (14.0-18.0)
--- NOTE | 2018-07-11 17:00 | Consultation Report ---
DATE OF CONSULTATION: 07/11/2018 GI CONSULT NOTE REASON FOR EVALUATION: Rectal bleeding. HISTORY OF PRESENT ILLNESS: The patient is a 73-year-old male who began experiencing rectal bleeding about 11:00 p.m. last night. He had bright red blood per rectum and this was similar to an event he had 12 years ago in the [place] area where he had a large volume GI bleed from diverticulosis and required hospitalization with blood transfusions. He resolved that without surgical or interventional radiology intervention. He did have a colonoscopy in April of 2017 and was found to have diverticulosis and had a few benign polyps removed with a 5-year followup recommended. The patient delayed coming to the hospital until 2:00 a.m. when he had another much larger bright red rectal bleeding with some sounds like clots mixed in. He came to the hospital, had another episode and then at 06:08 and 10:00 a.m. this morning much smaller bleeding episodes of darker blood that sounds like old blood coming through. This was entirely painless. He does feel a little bit weak. His hemoglobin dropped from 13.4 down to 10.1 overnight. Of note is the patient has been taking a baby aspirin every day without any clear cut indication. PAST MEDICAL HISTORY: Remarkable for previous diverticular bleed 12 years ago. He has benign prostatic hypertrophy. MEDICATIONS: Per list. ALLERGIES: ATORVASTATIN AND LEVOFLOXACIN. FAMILY HISTORY: Noncontributory. SOCIAL HISTORY: The patient is and lives with his . He is retired, does not smoke. REVIEW OF SYSTEMS: Unremarkable except for the systems described above. PHYSICAL EXAMINATION: GENERAL: The patient appears awake, alert, in no acute distress. VITAL SIGNS: Normal. He is afebrile. ABDOMEN: Soft. Bowel sounds are normal. There are no masses, tenderness, or hepatosplenomegaly. IMPRESSION: The patient had acute onset large volume painless rectal bleeding. In his age group, this is by far and away the most likely cause of his diverticular bleeding. He has known diverticulosis based on previous colonoscopy. At this point, he appears to have stopped bleeding. We will continue to trend his blood counts and if his hemoglobin drops below 8, I would recommend transfusion. I will advance him to clear-liquid diet at this time. I think he can stop his aspirin. He has had 2 large GI bleeds now and has no clear cut reason to be on it. Hopefully, if he is stable tomorrow without a significant drop in blood count, hopefully, he will be able to go home, 90+% of these bleeds stop without intervention. If he does bleed again, however, I would recommend interventional radiology to localize the bleeding site and intervene noninvasively rather than surgically.
--- NOTE | 2018-07-11 17:05 | Family Medicine Progress Note ---
Date of Service July 11, 2018 Assessment & Plan (1) GI bleed: 73-year-old male with a past medical history of diverticulosis with GI bleed, HLD, BPH presents with dark mixed with bright red blood in stool. #GI bleed in the setting of diverticulosis/diverticulitis vs angiodysplasia? Type/screened, H&H q4h x3 stable. No transfusion PRBCs indicated at this time. Continue fluids, D5/potassium/normal saline at 110 cc/h while NPO. Nonspecific colitis on CT. Pt is pain free. Stable for now, will await GI c/s. Consider DC cefoxitin given absence of diverticulitis. Given Protonix 80 mg IV in the ED. We will continue with famotidine IV twice daily. (Protonix is on back order) Gastroenterology consult, appreciate recs. #Hypotensive on arrival Resolved, responsive to IVF. -Continue IV fluids. 2 large bore IVs placed #Acute blood loss anemia -Monitor h/h and transfuse prn FEN/GI: D5 NSS + 20meqK @110 ml/hr. GI to advance RIAN. DVT ppx: chemical anticoag contraindicated in setting of GIB. SCDs, ambulate. Held home ASA -- agree with GI that this may be a med considering risks/benefits, to defer ongoing use to PCP. CODE STATUS: FULL DISPO: med tele Other ongoing medical problems: #BPH -stable Continue tamsulosin Patient reports a significant history of urinary retention and UTI following surgery Consider catheterization if the procedure needs to be doneper report, patient states that he would refuse straight catheterization. (2) Diverticulitis: (3) Diverticulosis: (4) BPH (benign prostatic hyperplasia): Supervising Physician Co-Signing Physician Notes Resident Physician Supervision Note: I independently interviewed and examined the patient and verified the schroeder history and physical, reviewed labs and image studies, discussed the case with the resident Dr. Cramer and agree with the findings and care plan. Subjective Pt NPO overnight. Denies abdominal pain. Endorses 3 more stools overnight, with each decreasing amount of blood visible. Says the blood looked "dark red with surrounding bright red" blood. Has a PMH of this happening in the remote past. Denies CP or palpitations or presyncope or syncope when getting up to toilet. Ambulating well. ROS as above Physical Exam Vital Signs (Past 24 Hours): Last Vital Signs Temp 36.6 C 07/11/18 14:56 Pulse 48 L 07/11/18 14:56 Resp 20 07/11/18 14:56 BP 123/71 07/11/18 14:56 Pulse Ox 96 07/11/18 14:56 Physical Exam: Vitals noted as above and within normal limits . GENERAL: Awake, alert to person, place, and time, nontoxic-appearing, in no distress HENT: Normocephalic, atraumatic. . Mucus membranes appear moist. EYES: Normal conjunctiva. Sclera non-icteric. EOMI. NECK: Supple. Full range of motion. RESPIRATORY: Clear to auscultation. Normal work of breathing. CARDIAC: Regular rate, normal rhythm. Extremities warm and well perfused. ABDOMEN: Soft, non-distended. No tenderness to palpation in all four quadrants. No rebound or guarding. No masses. Bowel sounds are normal. LOWER EXTREMITIES: Inspection of calves reveal equal size bilaterally. They are non-tender. NEURO: No focal gross focal motor deficits noted. Sensation in tact. CN II-XII grossly in tact. SKIN: Rash not present. No jaundice noted. Significant lesions not present. PSYCH: Appropriate mood and affect. Cooperative. Exam as done by Teetee Cramer MD, Meeting Specialist. Results & Data Laboratory Results 07/11/18 07/11/18 07/11/18 Range/Units 15:10 10:48 06:45 WBC (4.8-10.8) K/uL RBC (4.7-6.1) M/uL Hgb 10.1 L 10.4 L (14.0-18.0) g/dL POC Hgb (14.0-18.0) g/dl Hct 30.5 L 31.3 L (42-52) % POC Hct (42-52) % MCV (80-100) fL MCH (25-34) pg MCHC (32-36) g/dL RDW Std Deviation (36.4-46.3) fL RDW Coeff of Vera (11.5-14.5) % Plt Count (130-400) K/uL MPV (7.4-10.4) fL Immature Gran % (Auto) % Neut % (Auto) % Lymph % (Auto) % [place] % (Auto) % Eos % (Auto) % Baso % (Auto) % Immature Gran # (Auto) (0.00-0.02) K/uL Neut # (Auto) (1.4-6.5) K/uL Lymph # (Auto) (1.2-3.4) K/uL [place] # (Auto) (0.11-0.59) K/uL Eos # (Auto) (0-0.5) K/uL Baso # (Auto) (0-0.2) K/uL PT (9.0-12.0) Seconds INR (0.9-1.1) APTT (21.0-31.0) Seconds PTT Ratio POC Sodium (135-144) mEq/L Sodium (136-145) mmol/L POC Potassium (3.3-5.0) mEq/L Potassium (3.5-5.1) mmol/L POC Chloride (101-112) mEq/L Chloride (98-107) mmol/L Carbon Dioxide (21-32) mmol/L POC Total CO2 (24-31) mEq/l Anion Gap (3-11) POC Anion Gap (16-25) mmol/L POC BUN (7-18) mg/dl BUN (7-18) mg/dl Creatinine (0.6-1.4) mg/dl POC Creatinine (0.6-1.3) mg/dl Est Cr Clr Drug Dosing ml/min Est GFR ( Amer) Est GFR (Non-Af Amer) BUN/Creatinine Ratio (10-20) Glucose (70-99) mg/dl POC Glucose (other) (70-99) mg/dl Calcium (8.5-10.1) mg/dl POC Ioniz Calcium Jori (1.12-1.32) mmol/l Magnesium (1.8-2.4) mg/dl Total Bilirubin (0.2-1) mg/dl Direct Bilirubin (0-0.2) mg/dl AST (15-37) U/L ALT (12-78) U/L Alkaline Phosphatase (45-117) U/L Troponin I (0-0.045) ng/ml Total Protein (6.4-8.2) gm/dl Albumin (3.4-5.0) gm/dl Lipase (73-393) U/L Urine Color Urine Appearance (Clear) Urine pH (4.5-7.5) Ur Specific [place] (1.000-1.030) Urine Protein (Negative) Urine Glucose (UA) (Negative) Urine Ketones (Negative) Urine Blood (Negative) Urine Nitrite (Negative) Urine Bilirubin (Negative) Urine Urobilinogen (Negative) Ur Leukocyte Esterase (Negative) Blood Type Blood Type Recheck A Positive Antibody Screen Crossmatch 07/11/18 07/11/18 07/11/18 Range/Units 06:45 06:15 03:06 WBC (4.8-10.8) K/uL RBC (4.7-6.1) M/uL Hgb 11.1 L (14.0-18.0) g/dL POC Hgb (14.0-18.0) g/dl Hct 33.8 L (42-52) % POC Hct (42-52) % MCV (80-100) fL MCH (25-34) pg MCHC (32-36) g/dL RDW Std Deviation (36.4-46.3) fL RDW Coeff of Vera (11.5-14.5) % Plt Count (130-400) K/uL MPV (7.4-10.4) fL Immature Gran % (Auto) % Neut % (Auto) % Lymph % (Auto) % [place] % (Auto) % Eos % (Auto) % Baso % (Auto) % Immature Gran # (Auto) (0.00-0.02) K/uL Neut # (Auto) (1.4-6.5) K/uL Lymph # (Auto) (1.2-3.4) K/uL [place] # (Auto) (0.11-0.59) K/uL Eos # (Auto) (0-0.5) K/uL Baso # (Auto) (0-0.2) K/uL PT (9.0-12.0) Seconds INR (0.9-1.1) APTT (21.0-31.0) Seconds PTT Ratio POC Sodium (135-144) mEq/L Sodium (136-145) mmol/L POC Potassium (3.3-5.0) mEq/L Potassium (3.5-5.1) mmol/L POC Chloride (101-112) mEq/L Chloride (98-107) mmol/L Carbon Dioxide (21-32) mmol/L POC Total CO2 (24-31) mEq/l Anion Gap (3-11) POC Anion Gap (16-25) mmol/L POC BUN (7-18) mg/dl BUN (7-18) mg/dl Creatinine (0.6-1.4) mg/dl POC Creatinine (0.6-1.3) mg/dl Est Cr Clr Drug Dosing ml/min Est GFR ( Amer) Est GFR (Non-Af Amer) BUN/Creatinine Ratio (10-20) Glucose (70-99) mg/dl POC Glucose (other) (70-99) mg/dl Calcium (8.5-10.1) mg/dl POC Ioniz Calcium Jori (1.12-1.32) mmol/l Magnesium (1.8-2.4) mg/dl Total Bilirubin (0.2-1) mg/dl Direct Bilirubin (0-0.2) mg/dl AST (15-37) U/L ALT (12-78) U/L Alkaline Phosphatase (45-117) U/L Troponin I (0-0.045) ng/ml Total Protein (6.4-8.2) gm/dl Albumin (3.4-5.0) gm/dl Lipase (73-393) U/L Urine Color Yellow Urine Appearance Clear (Clear) Urine pH 5.0 (4.5-7.5) Ur Specific [place] > 1.045 H (1.000-1.030) Urine Protein Negative (Negative) Urine Glucose (UA) Negative (Negative) Urine Ketones Negative (Negative) Urine Blood Negative (Negative) Urine Nitrite Negative (Negative) Urine Bilirubin Negative (Negative) Urine Urobilinogen Negative (Negative) Ur Leukocyte Esterase Negative (Negative) Blood Type A Positive Blood Type Recheck Antibody Screen NEGATIVE Crossmatch See Detail 07/11/18 07/11/18 07/11/18 Range/Units 02:55 02:52 02:52 WBC (4.8-10.8) K/uL RBC (4.7-6.1) M/uL Hgb (14.0-18.0) g/dL POC Hgb 13.3 L (14.0-18.0) g/dl Hct (42-52) % POC Hct 39 L (42-52) % MCV (80-100) fL MCH (25-34) pg MCHC (32-36) g/dL RDW Std Deviation (36.4-46.3) fL RDW Coeff of Vera (11.5-14.5) % Plt Count (130-400) K/uL MPV (7.4-10.4) fL Immature Gran % (Auto) % Neut % (Auto) % Lymph % (Auto) % [place] % (Auto) % Eos % (Auto) % Baso % (Auto) % Immature Gran # (Auto) (0.00-0.02) K/uL Neut # (Auto) (1.4-6.5) K/uL Lymph # (Auto) (1.2-3.4) K/uL [place] # (Auto) (0.11-0.59) K/uL Eos # (Auto) (0-0.5) K/uL Baso # (Auto) (0-0.2) K/uL PT 10.4 (9.0-12.0) Seconds INR 1.0 (0.9-1.1) APTT 21.4 (21.0-31.0) Seconds PTT Ratio 0.8 POC Sodium 143 (135-144) mEq/L Sodium 143 (136-145) mmol/L POC Potassium 3.9 (3.3-5.0) mEq/L Potassium 4.0 (3.5-5.1) mmol/L POC Chloride 107 (101-112) mEq/L Chloride 111 H (98-107) mmol/L Carbon Dioxide 26 (21-32) mmol/L POC Total CO2 23 L (24-31) mEq/l Anion Gap 6.0 (3-11) POC Anion Gap 18.0 (16-25) mmol/L POC BUN 22 H (7-18) mg/dl BUN 23 H (7-18) mg/dl Creatinine 1.19 (0.6-1.4) mg/dl POC Creatinine 1.1 (0.6-1.3) mg/dl Est Cr Clr Drug Dosing 62.3 ml/min Est GFR ( Amer) 69.8 Est GFR (Non-Af Amer) 60.2 BUN/Creatinine Ratio 19.0 (10-20) Glucose 141 H (70-99) mg/dl POC Glucose (other) 143 H (70-99) mg/dl Calcium 7.9 L (8.5-10.1) mg/dl POC Ioniz Calcium Jori 1.13 (1.12-1.32) mmol/l Magnesium 2.2 (1.8-2.4) mg/dl Total Bilirubin < 0.1 L (0.2-1) mg/dl Direct Bilirubin < 0.1 (0-0.2) mg/dl AST 23 (15-37) U/L ALT 28 (12-78) U/L Alkaline Phosphatase 57 (45-117) U/L Troponin I < 0.015 (0-0.045) ng/ml Total Protein 6.0 L (6.4-8.2) gm/dl Albumin 3.0 L (3.4-5.0) gm/dl Lipase 151 (73-393) U/L Urine Color Urine Appearance (Clear) Urine pH (4.5-7.5) Ur Specific [place] (1.000-1.030) Urine Protein (Negative) Urine Glucose (UA) (Negative) Urine Ketones (Negative) Urine Blood (Negative) Urine Nitrite (Negative) Urine Bilirubin (Negative) Urine Urobilinogen (Negative) Ur Leukocyte Esterase (Negative) Blood Type Blood Type Recheck Antibody Screen Crossmatch 07/11/18 Range/Units 02:52 WBC 9.47 (4.8-10.8) K/uL RBC 4.48 L (4.7-6.1) M/uL Hgb 13.4 L (14.0-18.0) g/dL POC Hgb (14.0-18.0) g/dl Hct 40.0 L (42-52) % POC Hct (42-52) % MCV 89.3 (80-100) fL MCH 29.9 (25-34) pg MCHC 33.5 (32-36) g/dL RDW Std Deviation 41.5 (36.4-46.3) fL RDW Coeff of Vera 12.8 (11.5-14.5) % Plt Count 304 (130-400) K/uL MPV 10.2 (7.4-10.4) fL Immature Gran % (Auto) 0.4 % Neut % (Auto) 47.6 % Lymph % (Auto) 40.1 % [place] % (Auto) 9.7 % Eos % (Auto) 1.6 % Baso % (Auto) 0.6 % Immature Gran # (Auto) 0.04 H (0.00-0.02) K/uL Neut # (Auto) 4.50 (1.4-6.5) K/uL Lymph # (Auto) 3.80 H (1.2-3.4) K/uL [place] # (Auto) 0.92 H (0.11-0.59) K/uL Eos # (Auto) 0.15 (0-0.5) K/uL Baso # (Auto) 0.06 (0-0.2) K/uL PT (9.0-12.0) Seconds INR (0.9-1.1) APTT (21.0-31.0) Seconds PTT Ratio POC Sodium (135-144) mEq/L Sodium (136-145) mmol/L POC Potassium (3.3-5.0) mEq/L Potassium (3.5-5.1) mmol/L POC Chloride (101-112) mEq/L Chloride (98-107) mmol/L Carbon Dioxide (21-32) mmol/L POC Total CO2 (24-31) mEq/l Anion Gap (3-11) POC Anion Gap (16-25) mmol/L POC BUN (7-18) mg/dl BUN (7-18) mg/dl Creatinine (0.6-1.4) mg/dl POC Creatinine (0.6-1.3) mg/dl Est Cr Clr Drug Dosing ml/min Est GFR ( Amer) Est GFR (Non-Af Amer) BUN/Creatinine Ratio (10-20) Glucose (70-99) mg/dl POC Glucose (other) (70-99) mg/dl Calcium (8.5-10.1) mg/dl POC Ioniz Calcium Jori (1.12-1.32) mmol/l Magnesium (1.8-2.4) mg/dl Total Bilirubin (0.2-1) mg/dl Direct Bilirubin (0-0.2) mg/dl AST (15-37) U/L ALT (12-78) U/L Alkaline Phosphatase (45-117) U/L Troponin I (0-0.045) ng/ml Total Protein (6.4-8.2) gm/dl Albumin (3.4-5.0) gm/dl Lipase (73-393) U/L Urine Color Urine Appearance (Clear) Urine pH (4.5-7.5) Ur Specific [place] (1.000-1.030) Urine Protein (Negative) Urine Glucose (UA) (Negative) Urine Ketones (Negative) Urine Blood (Negative) Urine Nitrite (Negative) Urine Bilirubin (Negative) Urine Urobilinogen (Negative) Ur Leukocyte Esterase (Negative) Blood Type Blood Type Recheck Antibody Screen Crossmatch Medications Administered Current Inpatient Medications Sodium Chloride (Nss) 250 mls @ 15 mls/hr IV .[id number] PRN PRN Reason: For Transfusion Stop: 08/10/18 02:50 Potassium Chloride/Dextrose/Sod Cl (D5nss + 20meq Kcl) 20 meq in 1,000 mls @ 110 mls/hr IV .[id number] JAI Stop: 08/10/18 06:35 Last Admin: 07/11/18 16:48 Dose: 110 mls/hr Documented by: Cefoxitin Sodium 2,000 mg/ (Dextrose) 60 mls @ 100 mls/hr IV Q6H JAI Stop: 07/21/18 11:29 Last Infusion: 07/11/18 17:29 Dose: Infused Documented by: Famotidine 20 mg/ Syringe 5 mls @ 2.5 mls/min IV Q12 JAI Stop: 08/10/18 08:59 Last Admin: 07/11/18 20:36 Dose: 2.5 mls/min Documented by: Ioversol (Optiray 320 100ml) 94 ml IV ONCE PRN PRN Reason: Interaction Checking Stop: 07/15/18 03:59 Last Admin: 07/11/18 04:00 Dose: 94 ml Documented by: Tamsulosin HCl (Flomax) 0.8 mg PO HS [facility] Stop: 08/10/18 20:59 Last Admin: 07/11/18 20:34 Dose: 0.8 mg Documented by: Resident Activity Tracking Resident Involvement: Resident Care Provided Care Provided: Adult Hospital Medicine (1) GI bleed GI bleed type/associated pathology: diverticulitis Qualified Code(s): K57.93 - Diverticulitis of intestine, part unspecified, without perforation or abscess with bleeding
[2018-07-11] MEDS ORDERED: TAMSULOSIN HCL 0.4 MG CAP PO SCH (21:00)
[2018-07-11 21:47] LABS: Hematocrit (blood only) 30.4 % (42-52); Hemoglobin 10.2 g/dL (14.0-18.0)
[2018-07-12] MEDS: D5NSS + 20MEQ KCL 20 MEQ/1,000 ML BAG IV SCH (03:05)
[2018-07-12 04:25] LABS: Basophils # (auto) 0.03 K/uL (0-0.2); Basophils % (auto) 0.5 %; Eosinophils # (auto) 0.08 K/uL (0-0.5); Eosinophils % (auto) 1.3 %; Hematocrit (blood only) 28.4 % (42-52); Hemoglobin 9.4 g/dL (14.0-18.0); Immature Granulocytes # (auto) 0.01 K/uL (0.00-0.02); Immature Granulocytes % (auto) 0.2 %; Lymphocytes # (auto) 1.88 K/uL (1.2-3.4); Lymphocytes % (auto) 31.6 %; Mean Corpuscular Hgb Conc 33.1 g/dL (32-36); Mean Corpuscular Volume 87.9 fL (80-100); Mean Platelet Volume 10.2 fL (7.4-10.4); Monocytes # (auto) 0.45 K/uL (0.11-0.59); Monocytes % (auto) 7.6 %; Neutrophils # (auto) 3.49 K/uL (1.4-6.5); Neutrophils % (auto) 58.8 %; Platelet Count 237 K/uL (130-400); RDW Standard Deviation 42.5 fL (36.4-46.3); Red Blood Count 3.23 M/uL (4.7-6.1); White Blood Count 5.94 K/uL (4.8-10.8)
[2018-07-12 04:46] LABS: BUN Creatinine Ratio 12.3 (10-20); Calcium 7.3 mg/dl (8.5-10.1); Creatinine Clr Calc Pharmacy 76.6 ml/min; Est GFR (African American) 90.5; Est GFR (Non-African American) 78.1; Potassium 4.3 mmol/L (3.5-5.1)
[2018-07-12] MEDS: cefOXitin 2,000 MG in DEXTROSE 5% 50 ML IV SCH ×2 (05:52→13:16)
[2018-07-12] MEDS: FAMOTIDINE 20 MG in SYRINGE 3 ML IV SCH (07:57)
--- NOTE | 2018-07-12 10:11 | Discharge Summary ---
Date of Service July 12, 2018 Admission HPI Per Admitting Provider 73-year-old male with a past medical history of diverticulosis, hyperlipidemia and BPH presents with bright blood per rectum. The patient states that he had a similar episode 10 years ago and was hospitalized for significant GI bleed that required transfusion. The patient receives colonoscopies every 5 years (history of benign polyps) and states that he has been found to have diverticulosisparticular site of bleed was not elucidated last time. Patient states that he had a little blood with bowel movement at 11 PM and was subsequently woken at 2 AM with a large bowel movement with bright red blood. The patient denies abdominal pain, nausea/vomiting/diarrhea. He denies a family history of colon cancer. He denies personal history of peptic ulcer disease. Family history includes prostate cancer in his brother. Review of systems Constitutional; the patient denies fevers, chills, night sweats Chest; the patient denies chest pain, shortness of breath, cough, runny nose, sore throat Abdomen; as mentioned above MSK; no calf tenderness Principal Diagnosis diverticular bleed Discharge Exam GENERAL: Awake, alert to person, place, and time, nontoxic-appearing, in no distress HENT: Normocephalic, atraumatic. Mucus membranes appear moist. EYES: Normal conjunctiva. Sclera non-icteric. EOMI. NECK: Supple. Full range of motion. RESPIRATORY: Clear to auscultation. Normal work of breathing. CARDIAC: Regular rate, normal rhythm. Extremities warm and well perfused. ABDOMEN: Soft, non-distended. No tenderness to palpation in all four quadrants. No rebound or guarding. No masses. Bowel sounds are normal. LOWER EXTREMITIES: Inspection of calves reveal equal size bilaterally. They are non-tender. NEURO: No focal gross focal motor deficits noted. Sensation in tact. CN II-XII grossly in tact. SKIN: Rash not present. No jaundice noted. Significant lesions not present. PSYCH: Appropriate mood and affect. Cooperative. Exam as done by Teetee Cramer MD, Senior Lead Project Manager. Discharge Data Allergies Allergy/AdvReac Type Severity Reaction Status Date / Time atorvastatin AdvReac Intermediate myalgia Verified 07/11/18 04:19 levofloxacin AdvReac Intermediate myalgia Verified 07/11/18 04:19 Consultations 07/11/18 04:02 ED Decision to Admit Stat 07/11/18 06:36 Consult Gastroenterology Routine Ordered Studies 07/11/18 03:21 CT abd pelvis IV con only Urgent Hospital Course (1) GI bleed: 73-year-old male with a past medical history of diverticulosis with GI bleed, HLD, BPH presents with dark mixed with bright red blood in stool prior to admission. Gi bleed and Nonspecific colitis noted on CT. Monitored for acute GI bleed in the setting of diverticulosis. H&H monitored, stable. No PRBC transfusion necessary, initial hypotension responsive to IV hydration. Pt always remained pain free. Bowel rest. Gastroenterology consulted, darker blood likely represents old blood in the colon. Plan for IR intervention should bleed recur. Held Aspirin during admission. Recommend continue hold until symptom free for at least one week. Unclear why on aspirin. Does not appear to have high risk factors for CV disease. Defer to PCP. Repeat CBC in 1 week, close GI follow up. #BPH -No acute issues here. Continue tamsulosin (2) Diverticulitis: (3) Diverticulosis: (4) BPH (benign prostatic hyperplasia): Total Time Total Time Spent Total Time Spent (In Minutes): 35 Total Time Includes: Examination of the Patient, Discharge Planning, Medication Reconciliation, Communication With Other Providers and Other Discharge Plan Discharge Items Patient Disposition: Home - Self-Care Reason For Visit: GI BLEED Discharge Diagnosis: GI BLEED Condition: Good Discharge Goals: Decrease discomfort, Improve function, Learn about illness and Prevent disease Activity: Per 'Additional Instructions' section Lifting: Gradually increase as tolerated Bathing: No limitations Sexual Activity: When tolerated Exercise/Sports: Gradually increase as tolerated Driving/Machine Use: No limitations Non-emergency contact: Primary Care Provider and Transfer Table Operator Helper Call non-emergency contact if: you have any medication questions, your symptoms worsen, your pain is worsening and your pain is concerning for you Follow-up/Referrals: Pantera Bateman [Physician] - 09/01/18 7:40 am (Please, follow up with Dr. Bateman (gastroenterology) on September 01 at 7:40 am. *This office is located at [address] [place] [address] in [place], next to [facility]. If you need to change this appointment, call the office at [phone]. ) Alayna Argueta MD [Primary Care Provider] - 07/20/18 9:00 am (Please, follow up at Dr. Alayna Argueta' office with her legal support assistant Lory Casey on WednesdayJuly 20 at 9:00 am. *If you need to change this appointment, call the office at [phone].) Diet: Regular Other Ambulatory Orders: Complete Blood Count with Diff (Routine) Timeframe: 1 Week Location: Determined by Patient Ordered By: Teetee Kaur Provider Instructions: You were admitted due to acute bleeding in your stool. Diagnostic imaging shows diverticulosis, with no evidence of acute infection. You were seen by gastroenterology, Dr. Bateman, and this bleeding is also improving. The thinking is that the acute bleeding is stopped, but there is some old blood remaining in the bowel that is still passing, which is why it appears "darker" red. The plan going forward is for close follow up, and no urgent intervention as the majority of this type of bleeding resolves on its own. Please keep your follow up with your PCP and with Dr. Bateman which is being arranged for you. You are advised to get your blood drawn to check your hemaglobin a day before your visit with your PCP, so that they can verify that your hemoglobin levels are stable. Reasons to seek sooner/emergent medical attention: your symptoms of bleeding suddenly become worse, large amounts of blood from the stool, increased pain in your abdomen or new fevers (temp > 100.4). Please call your PCP or go to the ER if no one is available to see you. We have slowly returned you to a normal diet -- for the next 3-5 days, keep your diet simple, as in not greasy or high in fat, and low in fiber. Maintain good hydration -- based on your weight, we recommend at least 70 oz of water per day. (Tea, coffee doesn't count.) Please make sure to get your blood count checked -- a lab order has been given to your for this. Your PCP and Dr. Bateman can follow up on this. Your hemoglobin on morning of discharge is 9.4. *Please wait to resume your aspirin until after your appointments with PCP and Dr. Bateman or after your stool bleeding has completely stopped for 2 days. It appears you are on this mainly for routine prophylaxis of heart attack or stroke, although in your case, given your history of bleeding, it may be prudent to weight the risks and benefits. To be fair, you have only had 2 bleeds while on aspirin. Bleeds generally respond well to management. Heart attacks and stroke tend to be harder to recover from. Please discuss this with your PCP to decide how to move forward. Be well A Shoaib MENDOZA Prescriptions: Continued tamsulosin 0.4 mg capsule 0.8 mg PO HS RF: 0 ezetimibe 10 mg tablet 10 mg PO DAILY RF: 0 multivitamin Tablet 1 tab PO DAILY RF: 0 omega 6-hbm-qzo-fish oil [Fish Oil] 1,000 mg (120 mg-180 mg) Capsule 1 cap PO DAILY RF: 0 Discontinued aspirin [Aspir-81] 81 mg Tablet,Delayed Release (Dr/Ec) 81 mg PO DAILY RF: 0 Stand-Alone Forms: [facility] Discharge Orders: Discharge Order (Routine); Ordered 07/12/18 Ordered By: Pennie Clayton Admission Data Admit Date/Time: 07/11/18 05:15 Attending Provider: Verena Pak Admit Provider: Sebastian Cramer Primary Care Provider: Alayna Argueta Other Providers: Jonny Jalloh ; Pantera Bateman Service: Telemetry Medical Other Interventions: Discharge Summary Assessment (RN) Last Done: 07/12/18 13:25 Pending Studies at Discharge: No DC Date/Time DO NOT enter until pt leaves facility: 07/12/18 14:10 Supervising Physician Co-Signing Physician Notes Resident Physician Supervision Note: I independently interviewed and examined the patient and verified the schroeder history and physical, reviewed labs and image studies, discussed the case with the resident Dr. Cramer and agree with the findings and care plan. Time spent in discharge 35 min Resident Activity Tracking Resident Involvement: Resident Care Provided Care Provided: Adult Hospital Medicine
[2018-07-12 11:57] LABS: Hematocrit (blood only) 29.7 % (42-52); Hemoglobin 9.9 g/dL (14.0-18.0)
== END 2018-07-12 14:10 | disposition home or self-care (01) | DRG 378 ==
LOC: ED 02:35 → 2W 05:15 → SUATTDRO 05:15 → 2W 06:02
DX: Z86.010 Personal history of colon polyps; Z79.899 Other long term (current) drug therapy; E78.5 Hyperlipidemia, unspecified; Z88.1 Allergy status to other antibiotic agents; D62 Acute posthemorrhagic anemia; Z79.82 Long term (current) use of aspirin; I95.9 Hypotension, unspecified; K57.31 Diverticulosis of large intestine without perforation or abscess with bleeding; Z88.8 Allergy status to other drugs, medicaments and biological substances; N40.0 Benign prostatic hyperplasia without lower urinary tract symptoms; Z87.440 Personal history of urinary (tract) infections

== ENCOUNTER 2023-02-17 15:38 | Observation (INO) ==
[2023-02-17 17:51] LABS: Basophils # (auto) 0.04 K/uL (0.00-0.20); Basophils % (auto) 0.6 %; Eosinophils # (auto) 0.05 K/uL (0.00-0.50); Eosinophils % (auto) 0.7 %; Hematocrit (blood only) 41.1 % (42.0-52.0); Hemoglobin 13.6 g/dl (14.0-18.0); Immature Granulocytes # (auto) 0.01 K/uL (0.01-0.20); Immature Granulocytes % (auto) 0.1 %; Lymphocytes # (auto) 1.12 K/uL (1.20-3.40); Lymphocytes % (auto) 15.4 %; Mean Corpuscular Hgb Conc 33.1 g/dL (32.0-36.0); Mean Corpuscular Volume 90.5 fL (80.0-100.0); Mean Platelet Volume 10.9 fL (9.4-12.4); Monocytes # (auto) 0.62 K/uL (0.11-0.59); Monocytes % (auto) 8.5 %; Neutrophils # (auto) 5.42 K/uL (1.40-6.50); Neutrophils % (auto) 74.7 %; Platelet Count 273 K/uL (130-400); RDW Coefficient of Variation 12.6 % (11.5-14.5); RDW Standard Deviation 41.1 fL (36.4-46.3); Red Blood Count 4.54 M/uL (4.70-6.10); White Blood Count 7.26 K/ul (4.8-10.8)
[2023-02-17 17:54] LABS: Appearance Urine Clear (Clear); Bilirubin Urine Negative (Negative); Blood Urine Negative (Negative); Color Urine Yellow; Glucose Urine UA Negative (Negative); Ketones Urine Negative (Negative); Leukocyte Esterase Urine Negative (Negative); Nitrite Urine Negative (Negative); Protein Urine Negative (Negative); Specific Gravity Urine 1.006 (1.000-1.030); Urobilinogen Urine Negative (Negative); pH Urine 5.5 (4.5-7.5)
[2023-02-17 18:05] LABS: Albumin Level 4.1 gm/dl (3.4-5.0); Bilirubin,Total 0.4 mg/dl (0.2-1.0); Calcium 9.6 mg/dl (8.6-10.3); Potassium 5.2 mmol/L (3.5-5.1)
[2023-02-17 18:11] LABS: Albumin Globulin Ratio 1.7 (0.9-2); BUN Creatinine Ratio 8.3 (10-20); Creatinine Clr Calc Pharmacy 17.9 ml/min; Est GFR (African American) 18.2 ml/min; Est GFR (Non-African American) 15.7 ml/min; Globulin 2.4 gm/dl (2.5-4.0); Total Protein 6.5 gm/dl (6.0-8.3)
--- NOTE | 2023-02-17 18:29 | Emergency Department Note ---
Impression & Plan Acute renal failure (ARF), BPH (benign prostatic hyperplasia), Urinary retention ED Provider Note NAME: RACH JUNIOR AGE: 78 SEX: M : 1945 ARRIVES VIA: Walk-In INFORMANT: Patient, ED PROVIDER(S): Taras Duncan MD CHIEF COMPLAINT: Abdominal pain, outpatient referral MEDICAL DECISION MAKING: Patient presents due to concern for abdominal pain and is referred as an outpatient due to concern for possible appendicitis. The patient does have lower abdominal pain. Patient did have a bladder scan was completed with a postvoid residual of greater than 599. Patient was ordered a Sanders catheter. The patient has a normal white count with a mildly low hemoglobin of 13.6. Patient platelet count is unremarkable. The patient does have acute renal failure with a creatinine to 3.5 baseline of 0.9 from 2019. Urinalysis without blood or infection. CT abdomen pelvis without contrast was ordered and the patient was noted to have a distended bladder and prostatomegaly. 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 Given these concerns along with acute renal failure the patient did have a Sanders catheter placed by urology I did speak with Mode Zeng PA-C. I subsequently did speak with Dr. Fish and the patient was admitted to the medicine service Discussion w/ other healthcare providers: None Prior /Outside records reviewed: I reviewed a urology visit from February 25, [address] Benjamin. The patient does have a history of BPH. Patient was advised to continue his tamsulosin and had a benign exam and low PSA Differential diagnosis: Appendicitis, testicular torsion, UTI, diverticulitis, obstruction, renal colic, mesenteric adenitis, enteririts, PUD, pancreatitis, biliary pathology, hernia, volvulus, constipation, as well as other pathologies were considered. Diagnostics, as interpreted by me: ECG: None Cardiac monitoring: An order was placed for continuous cardiac monitoring. The monitor shows a rate of 57 with sinus rhythm. Patient was placed on pulse oximetry Medical decision rules: None Imaging studies: I informally interpreted the patient's CT abdomen pelvis which shows distended bladder with hydroureteronephrosis with formal report to follow. HPI: Patient presents due to concern for abdominal pain which she states he has had over the last 3 weeks or so. The patient has had some associated constipation does feel as though he has had increasing urinary frequency. Patient does have a known history of prior prostate issues and does follow with Dr. Benjamin. He did recently provide a urine sample earlier today anticipation of an upcoming visit. Patient denies any blood in the urine no history of kidney stones. Patient states that his signs and symptoms seemed reminiscent of diverticulitis. The patient was seen by his outpatient physician who was concerned as he had right lower quadrant pain referred him here for evaluation treatment for possible appendicitis. Patient denies any chest pains or shortness of breath. He has had some mild lower back discomfort. No recent heavy lifting twisting or turning or trauma. PAST MEDICAL HISTORY: See Below PAST SURGICAL HISTORY: See Below SOCIAL HISTORY: See Below HOME MEDICATIONS: See Below ALLERGIES: See Below VITALS: See Below PHYSICAL EXAMINATION: GENERAL: NAD, non-toxic. Wearing glasses. EYE EXAM: Normal conjunctiva. PERRL, no anisocoria and EOM's grossly intact w/o pain. OROPHARYNX: Moist mucus membranes, grossly normal dentition. NECK: Supple, no nuchal rigidity, no adenopathy, non-tender. No signs of meningismus. FROM of the neck with good chin to chest and neck extension. No stridor. LUNGS: Clear to auscultation. Normal chest wall mechanics. HEART: NSR, no MRG. ABDOMEN: Abdomen soft, right lower quadrant suprapubic pain, negative obturators and psoas, no masses, no rebound or guarding. BACK: No CVA TTP. SKIN: No rashes and no bruising. UPPER EXTREMITIES: Upper extremities are grossly normal. LOWER EXTREMITIES: Grossly normal, no edema. NEURO EXAM: A&O x3, cranial nerves II-XII grossly intact, normal speech, moves all 4 extremities. Past Med/Surg History Medical History (Updated 02/18/23 @ 01:45 by Taras Duncan MD) History of rectal bleeding Diverticulitis Urinary retention Pseudomonas urinary tract infection Surgical History [place] teeth removed Family History Other Family history non-contributory Social History Smoking Status: Never smoker Hx Alcohol Use: No Hx Substance Use: No Preferred Language: Dominican Communication Ability: Effective Telephone Services Sales Representative Required: No Beliefs That Will Affect Care: None marital status: Current Living Situation: Spouse current occupational status: retired Feels Safe at Home: Yes Assistive Devices: Glasses Allergies Allergies Allergy/AdvReac Type Severity Reaction Status Date / Time No Known Allergies Allergy Verified 02/17/23 20:03 Home Meds Home Medications Medication Instructions Recorded Confirmed ezetimibe 10 mg tablet 10 mg PO QDD 07/11/18 02/17/23 multivitamin 1 tab PO DAILY 07/11/18 02/17/23 pravastatin 10 mg tablet 10 mg PO QDD 10/04/19 02/17/23 Previous Rx's Medication Instructions Recorded tamsulosin 0.4 mg capsule 0.8 mg (2 x 0.4 mg) PO HS #180 caps 02/25/22 Results & Data (ED) Vital Signs Vital Signs - 24 hr 02/17/23 15:51 02/17/23 18:23 02/17/23 19:54 Temperature 36.7 C Temperature Source Temporal Artery Scan Pulse Rate 61 Pulse Rate [Finger] 51 L 57 L Respiratory Rate 18 15 16 Respiratory Effort / Characteristics Non-Labored Spontaneous Respiratory Depth Normal Respiratory Pattern Regular Blood Pressure 207/95 H Blood Pressure [Right Arm] 208/96 H 190/106 H Blood Pressure Mean 132 Blood Pressure Mean [Right Arm] 133 134 Pulse Oximetry 94 98 97 Oxygen Delivery Method Room Air Room Air Sepsis Recent Fever Within 48 Hours No Sepsis New/Unexplained Change in Mental Status No Sepsis Action Taken by Nursing No Action Required Home Medications Current Medication List: was personally reviewed by me Laboratory Data Attestation: I reviewed the patient's lab results. 02/17/23 17:35 02/17/23 17:35 Lab Results 02/17/23 02/17/23 Range/Units 17:35 17:40 WBC 7.26 (4.8-10.8) K/ul RBC 4.54 L (4.70-6.10) M/uL Hgb 13.6 L (14.0-18.0) g/dl Hct 41.1 L (42.0-52.0) % MCV 90.5 (80.0-100.0) fL MCH 30.0 (25.0-34.0) pg MCHC 33.1 (32.0-36.0) g/dL RDW Std Deviation 41.1 (36.4-46.3) fL RDW Coeff of Vera 12.6 (11.5-14.5) % Plt Count 273 (130-400) K/uL MPV 10.9 (9.4-12.4) fL Immature Gran % (Auto) 0.1 % Neut % (Auto) 74.7 % Lymph % (Auto) 15.4 % [place] % (Auto) 8.5 % Eos % (Auto) 0.7 % Baso % (Auto) 0.6 % Neut # (Auto) 5.42 (1.40-6.50) K/uL Lymph # (Auto) 1.12 L (1.20-3.40) K/uL [place] # (Auto) 0.62 H (0.11-0.59) K/uL Eos # (Auto) 0.05 (0.00-0.50) K/uL Baso # (Auto) 0.04 (0.00-0.20) K/uL Immature Gran # (Auto) 0.01 (0.01-0.20) K/uL Sodium 139 (136-145) mmol/L Potassium 5.2 H (3.5-5.1) mmol/L Chloride 106 (98-107) mmol/L Carbon Dioxide 28 (21-32) mmol/L Anion Gap 5 (3-11) BUN 29 H (6-23) mg/dl Creatinine 3.51 H (0.6-1.4) mg/dl Est Cr Clr Drug Dosing 17.9 ml/min Est GFR ( Amer) 18.2 ml/min Est GFR (Non-Af Amer) 15.7 ml/min BUN/Creatinine Ratio 8.3 L (10-20) Glucose 87 (70-99(Fasting)) mg/dl Calcium 9.6 (8.6-10.3) mg/dl Total Bilirubin 0.4 (0.2-1.0) mg/dl AST 23 (13-39) U/L ALT 15 (7-52) U/L Alkaline Phosphatase 56 (34-104) U/L Total Protein 6.5 (6.0-8.3) gm/dl Albumin 4.1 (3.4-5.0) gm/dl Globulin 2.4 L (2.5-4.0) gm/dl Albumin/Globulin Ratio 1.7 (0.9-2) Lipase 22 (11-82) U/L Urine Color Yellow Urine Appearance Clear (Clear) Urine pH 5.5 (4.5-7.5) Ur Specific [place] 1.006 (1.000-1.030) Urine Protein Negative (Negative) Urine Glucose (UA) Negative (Negative) Urine Ketones Negative (Negative) Urine Blood Negative (Negative) Urine Nitrite Negative (Negative) Urine Bilirubin Negative (Negative) Urine Urobilinogen Negative (Negative) Ur Leukocyte Esterase Negative (Negative) Administered Medications Discontinued Medications Lidocaine HCl (Lidocaine 2% Jelly 5 Ml Tube) Confirm Administered Dose 5 ml EXT .STK-MED ONE Stop: 02/17/23 21:23 Last Admin: 02/17/23 22:06 Dose: Not Given Documented By: VAZQUEZ Lidocaine HCl (Lidocaine 2% Jelly 5 Ml Tube) 5 ml EXT NOW ONE Stop: 02/17/23 21:53 Last Admin: 02/17/23 22:09 Dose: 5 ml Documented By: VAZQUEZ Tamsulosin HCl (Tamsulosin Hcl 0.4 Mg Cap) 0.8 mg PO NOW STA Stop: 02/17/23 21:54 Last Admin: 02/17/23 22:13 Dose: 0.8 mg Documented By: VAZQUEZ Imaging Data Radiologist's Impression: Abdomen/Pelvis CT 02/17/23 18:26 Exam(s): CT ABDOMEN + PELVIS Without Contrast EXAM: CT Abdomen and Pelvis Without Intravenous Contrast CLINICAL HISTORY: Reason for exam: ARF, ab pain, h/o diverticulitis. TECHNIQUE: Axial computed tomography images of the abdomen and pelvis without intravenous contrast. CTDI is 24.6 mGy and DLP is 1167.79 mGy-cm. Automated exposure control was utilized for the study. A dose lowering technique was utilized adhering to the principles of ALARA. COMPARISON: CT abdomen/pelvis on 07/11/2018 FINDINGS: Lung bases: Unremarkable. No mass. No consolidation. ABDOMEN: Liver: Tiny hypodensities in the liver are too small to definitively characterize. Gallbladder and bile ducts: Hyperdense material in the gallbladder may represent artifact versus stones/sludge. No ductal dilation. Pancreas: Unremarkable. No ductal dilation. Spleen: Unremarkable. No splenomegaly. Adrenals: Unremarkable. No mass. Kidneys and ureters: Left pelvic kidney. Mild bilateral hydroureteronephrosis. No obstructing stone identified. Small left renal cyst. Stomach and bowel: Evaluation of the stomach is limited by underdistention. No mucosal thickening. No bowel obstruction or inflammation. PELVIS: Appendix: Normal appendix. Bladder: Distended bladder. Trabeculations and bladder diverticula. Please correlate with urinalysis if concerned for cystitis. No stones. Reproductive: Prostatomegaly. ABDOMEN and PELVIS: Intraperitoneal space: Small amount of fluid in the right abdomen. Bones/joints: No acute fracture. No dislocation. Soft tissues: Tiny fat-containing umbilical hernia. Vasculature: Phleboliths in the pelvis. Atherosclerotic changes of the vasculature. No aortic aneurysm. Lymph nodes: Unremarkable. No enlarged lymph nodes. IMPRESSION: 1. Distended bladder. Trabeculations and bladder diverticula. Please correlate with urinalysis if concerned for cystitis. 2. Left pelvic kidney. Mild bilateral hydroureteronephrosis. No obstructing stone identified. 3. Prostatomegaly. 4. Small amount of fluid in the right abdomen. Electronically signed by: Radha Riojas M.D. 02/17/23 20:25 PM Discharge Plan Visit Data Chief Complaint: Abdominal Pain Stated Complaint: ABD PAIN ED Provider: Taras Duncan Discharge Problem: Acute renal failure (ARF), BPH (benign prostatic hyperplasia), Urinary retention Discharge Problem: Acute renal failure (ARF) Qualifiers: Acute renal failure type: unspecified Qualified Code(s): N17.9 - Acute kidney failure, unspecified BPH (benign prostatic hyperplasia) Qualifiers: Lower urinary tract symptom presence: symptoms present Lower urinary tract symptom detail: urinary retention Qualified Code(s): N40.1 - Benign prostatic hyperplasia with lower urinary tract symptoms; R33.8 - Other retention of urine
--- NOTE | 2023-02-17 20:26 | CT Scan Report ---
Exam(s): CT ABDOMEN + PELVIS Without Contrast EXAM: CT Abdomen and Pelvis Without Intravenous Contrast CLINICAL HISTORY: Reason for exam: ARF, ab pain, h/o diverticulitis. TECHNIQUE: Axial computed tomography images of the abdomen and pelvis without intravenous contrast. CTDI is 24.6 mGy and DLP is 1167.79 mGy-cm. Automated exposure control was utilized for the study. A dose lowering technique was utilized adhering to the principles of ALARA. COMPARISON: CT abdomen/pelvis on 07/11/2018 FINDINGS: Lung bases: Unremarkable. No mass. No consolidation. ABDOMEN: Liver: Tiny hypodensities in the liver are too small to definitively characterize. Gallbladder and bile ducts: Hyperdense material in the gallbladder may represent artifact versus stones/sludge. No ductal dilation. Pancreas: Unremarkable. No ductal dilation. Spleen: Unremarkable. No splenomegaly. Adrenals: Unremarkable. No mass. Kidneys and ureters: Left pelvic kidney. Mild bilateral hydroureteronephrosis. No obstructing stone identified. Small left renal cyst. Stomach and bowel: Evaluation of the stomach is limited by underdistention. No mucosal thickening. No bowel obstruction or inflammation. PELVIS: Appendix: Normal appendix. Bladder: Distended bladder. Trabeculations and bladder diverticula. Please correlate with urinalysis if concerned for cystitis. No stones. Reproductive: Prostatomegaly. ABDOMEN and PELVIS: Intraperitoneal space: Small amount of fluid in the right abdomen. Bones/joints: No acute fracture. No dislocation. Soft tissues: Tiny fat-containing umbilical hernia. Vasculature: Phleboliths in the pelvis. Atherosclerotic changes of the vasculature. No aortic aneurysm. Lymph nodes: Unremarkable. No enlarged lymph nodes. IMPRESSION: 1. Distended bladder. Trabeculations and bladder diverticula. Please correlate with urinalysis if concerned for cystitis. 2. Left pelvic kidney. Mild bilateral hydroureteronephrosis. No obstructing stone identified. 3. Prostatomegaly. 4. Small amount of fluid in the right abdomen. Electronically signed by: Radha Riojas M.D. 02/17/23 20:25 PM
[2023-02-17] MEDS ORDERED: LIDOCAINE 2% JELLY 5 ML TUBE EXT ONE ×2 (21:22→21:52)
--- NOTE | 2023-02-17 21:51 | Urology Consultation ---
Date of Consultation February 17, 2023 Assessment & Plan (1) Acute kidney injury: (2) Urinary retention: I discussed with the treating emergency room physician due to the patient's acute kidney injury he feels the patient requires admission to the hospital. It is felt that the patient's acute kidney injury may be in some part due to urinary retention. Treat emergency room physician did note that nursing tried to place a 16 [place] coud catheter without difficulty and therefore urology was consulted. At the bedside asked the nursing staff to perform a bladder scan. When they did this the patient had approximately 600 cc of urine in his bladder. With the patient's permission and under sterile conditions I lubricated the patient's urethra with a Uro-Jet and then easily placed a 14 [place] coud catheter. Once the coud catheter was placed in the bladder clear urine was obtained and the balloon was inflated with 10 cc of sterile water. Patient's Sanders catheter was then placed to gravity drainage and we immediately obtained approximately 800 cc of clear urine. Would recommend maintaining the Sanders catheter for the present time. Serial labs to be followed Nephrotoxic medication should be avoided Additional recommendations to be forthcoming based on patient's laboratory response to the above History of Present Illness Reason for Consultation: Urinary retention History of Present Illness This is a 78-year-old male who presented to the emergency department secondary to some urinary difficulty. The patient notes that over the past several weeks he has been having increased urinary frequency. He notes that he has to get up several times in the middle the night and also has to urinate multiple times throughout the day. He denies any dysuria or hematuria. The patient does feel as though he is emptying his bladder the hallway and feels as though his urine stream is strong however his urinary frequency causes some concern. Patient presented the emergency department because of these symptoms and he also complains of some pressure in the suprapubic region. He denies any back or flank pain. Since arrival to hospital the patient has had labs and imaging which I independent reviewed. The patient did have a CT scan of the abdomen and pelvis. The patient was noted to have mild bilateral hydroureteronephrosis. There were no obstructing kidney stones identified. The patient's bladder was noted to be distended with trabeculations and concern for bladder diverticulum noted. Labs include a CBC her white blood cell count platelet count were normal. Hemoglobin and hematocrit are 13.6 and 41.1. Chemistry profile shows sodium is 139 with a potassium of 5.2. BUN and creatinine were 29 and 3.5. Urinalysis was performed and was not indicative of infection. At the time of my interview the patient was resting comfortably in bed and he was in no distress. Allergies Allergy/AdvReac Type Severity Reaction Status Date / Time No Known Allergies Allergy Verified 02/17/23 20:03 Home Medications Medication Instructions Recorded Confirmed Type ezetimibe 10 mg tablet 10 mg PO QDD 07/11/18 02/17/23 History multivitamin 1 tab PO DAILY 07/11/18 02/17/23 History pravastatin 10 mg tablet 10 mg PO QDD 10/04/19 02/17/23 History tamsulosin 0.4 mg capsule 0.8 mg (2 x 0.4 mg) PO HS #180 caps 02/25/22 02/17/23 Rx Patient History Medical History (Updated 02/18/23 @ 06:17 by Jimi Ball MD) History of rectal bleeding Diverticulitis Urinary retention Pseudomonas urinary tract infection Surgical History [place] teeth removed Family History Other Family history non-contributory Social History Smoking Status: Former smoker Tobacco Type: Cigarettes Hx Substance Use: No Preferred Language: South African Communication Ability: Effective Communication 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 Surgery Scheduling Coordinator Required: No Beliefs That Will Affect Care: None marital status: Current Living Situation: Spouse Current Living Situation Comment: owns home, multilevel--, son, daughter in law live with pt current occupational status: retired Other Information That Helps Us Care for You: No Feels Safe at Home: Yes Safety Concerns: Feels Safe At This Time Assistive Devices: Hearing Aid - Right Assistive Devices Comment: MARCOS and cochlear implant R ear--does not have with him Review of Systems Constitutional: no fever and no chills Eyes: + corrective lenses Ear, Nose, Mouth, Throat: no hearing loss Respiratory: no cough Cardiovascular: no chest pain Gastrointestinal: + abdominal pain (Suprapubic pressure/di scomfort); no nausea and no vomiting Genitourinary: + as per Subjective / HPI Musculoskeletal: no back pain Integumentary: no rash Neurologic: no localized weakness Physical Exam Constitutional: WD/WN, vitals as above Eyes: Wears glasses ENMT: Ears: no hearing impairment and no external ear abnormality Mouth: no oropharynx abnormality Neck: trachea midline Respiratory: normal respiratory effort; no respiratory distress Cardiovascular: Rate/Rhythm: regular rate and regular rhythm Gastrointestinal (Abdomen): Abdomen is soft and nondistended. There is no rebound tenderness or guarding. Patient did have some discomfort with palpation in the suprapubic region Musculoskeletal: No calf tenderness Skin: no rashes Neurologic: moves all extremities Psychiatric: A+Ox3, euthymic affect Genitourinary: No CVA tenderness with percussion bilaterally Results & Data Vital Signs (Past 12 Hours) Vital Signs Temp Pulse Pulse Resp BP BP Pulse Ox 02/17/23 19:54 57 L 16 190/106 H 97 02/17/23 18:23 51 L 15 208/96 H 98 02/17/23 15:51 36.7 C 61 18 207/95 H 94 O2 Del Method 02/17/23 19:54 Room Air 02/17/23 18:23 02/17/23 15:51 Room Air PG Care Time/CCT Total # of Minutes Spent Total Time Spent with Patient: Total time spent is greater than 50% in coordination of care (as documented) at patient's floor/unit and/or counseling patient: Coding Level of Care Code 55254 INT INP/OBS CARE 3/75MIN Diagnoses Acute kidney injury N17.9 Urinary retention R33.9
[2023-02-17] MEDS ORDERED: TAMSULOSIN HCL 0.4 MG CAP PO STA (21:53)
--- NOTE | 2023-02-17 23:40 | History & Physical Report ---
Date of Service February 17, 2023 Assessment & Plan (1) Urinary retention: Plan: 78 M with PMH BPH, HLD, who presents to emergency room with abdominal pain, distention. Now stable, improving with insertion of Sanders catheter, admitted for further evaluation of urinary retention, GEE secondary to bladder outlet obstruction and BPH. Urinary retention/GEE/BPH -Cr of 2.6 (baseline 0.9-1.2) on arrival. Afebrile. No leukocytosis. UA n egative for infection. -S/p Sanders catheter insertion on arrival, tamsulosin 0.8 mg on admission. Immediate, then gradual improvement in presenting symptoms. -ADDENDUM: Following admission, was notified by nursing about red urine in Sanders catheter. Ordered new UA (2+ hematuria, 3+ proteinuria). Urine culture pending. * Admit to med telemetry * Continue home tamsulosin * Started IV ceftriaxone (2 g every 24 hours) following emergence of hematuria * Urology consulted. Management recs as below: * Recommended maintaining Sanders * Avoid nephrotoxic medication * Trend renal improvement on a.m. labs Dyslipidemia -Takes ezetimibe 10 mg daily, pravastatin 10 mg daily. * Continue home regimen Code: Full code Dispo: Med-Surg telemetry FEN/GI: Regular DVT Prophylaxis: Lovenox 40 mg q24h PT/OT: No Consults: Urology Case Management: No (2) Acute kidney injury: (3) BPH (benign prostatic hyperplasia): (4) Dyslipidemia: History of Present Illness Primary Care Provider: Alayna Argueta MD Deepak is a 78-year-old man with a past medical history of BPH with LUTS, HLD, rectal bleed, and diverticulitis, who presented to the emergency room with lower abdominal pain symptoms that have worsened since Wednesday evening. Patient has been having similar but intermittent abdominal pain and increasing urinary frequency x3 weeks leading up to Wednesday evening. He sees Dr. Benjamin of urology for his BPH. ROS + urinary frequency, weak urinary stream, abdominal distention, and mild bilateral lower back pain. He denies pain with urination, hematuria, testicular pain. In the ED, vitals stable, within normal limits. Labs revealed a mild hyperkalemia (K +5.2), and GEE with Cr-3.51 (baseline 0.9-1.2). Urinalysis was negative for leuk esterase, nitrites, blood, WBCs, or bacteria. CT A/P revealed a distended bladder, mild bilateral hydro utero nephrosis without an obstructing stone identified, and prostatomegaly. He was amenable to reinsertion of a Sanders catheter, following which he began to experience immediate relief. Hospitalist service was consulted for admission. Allergies Allergy/AdvReac Type Severity Reaction Status Date / Time No Known Allergies Allergy Verified 02/17/23 20:03 Home Medications Medication Instructions Recorded Confirmed Type ezetimibe 10 mg tablet 10 mg PO QDD 07/11/18 02/17/23 History multivitamin 1 tab PO DAILY 07/11/18 02/17/23 History pravastatin 10 mg tablet 10 mg PO QDD 10/04/19 02/17/23 History cefdinir 300 mg capsule 300 mg PO BID 10 days #20 caps 02/18/23 Rx tamsulosin 0.4 mg capsule 0.8 mg (2 x 0.4 mg) PO HS #180 caps 02/22/23 Rx Past Med/Surg History Medical History (Updated 02/18/23 @ 12:24 by Paulino Jade) History of rectal bleeding Diverticulitis Urinary retention Pseudomonas urinary tract infection Surgical History Deshler teeth removed Family History Other Family history non-contributory Social History Smoking Status: Former smoker Tobacco Type: Cigarettes Hx Substance Use: No Preferred Language: Spanish Communication Ability: Effective 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 Normal conjunctiva, anicteric sclera. Oropharynx normal. Respiratory: Normal respiratory effort, CTABL. Cardiovascular: RRR without murmurs, gallops, or rubs. No pedal edema. GI: Soft abdomen. Mild right-sided, suprapubic tenderness to palpation. No guarding or rebound. : Sanders catheter in place, draining clear-yellow fluid. Neuro: Alert and oriented x3. Results & Data Results & Data Vital Signs (Past 12 Hours) Vital Signs Temp Pulse Pulse Resp BP BP Pulse Ox 02/17/23 22:27 48 L 02/17/23 22:25 49 L 21 172/87 H 96 02/17/23 19:54 57 L 16 190/106 H 97 02/17/23 18:23 51 L 15 208/96 H 98 02/17/23 15:51 36.7 C 61 18 207/95 H 94 O2 Del Method 02/17/23 22:27 02/17/23 22:25 Room Air 02/17/23 19:54 Room Air 02/17/23 18:23 02/17/23 15:51 Room Air Supervising Physician Co-Signing Physician Notes Attending addendum: I have physically seen this patient, have supervised the medical residents activities, and agree with the H&P unless as otherwise noted. Assessment and Plan: Acute kidney injury- Creatinine 3.51, with baseline 0.96 Likely secondary to BPH with LUTS Sanders catheter placed in ED draining significant volumes of urine Likely element of postobstructive uropathy Continue tamsulosin 0.8 mg p.o. at bedtime Consider addition of Avodart or Proscar Follow urine culture and sensitivity Ceftriaxone 2 g IV daily Urology has been consulted Resident Activity Tracking Resident Involvement: Resident Care Provided Care Provided: Adult Hospital Medicine (3) BPH (benign prostatic hyperplasia) Lower urinary tract symptom detail: urinary retention Lower urinary tract s ymptom presence: symptoms present Qualified Code(s): N40.1 - Benign prostatic hyperplasia with lower urinary tract symptoms; R33.8 - Other retention of urine
[2023-02-18] MEDS ORDERED: MELATONIN 3 MG TAB PO PRN (01:53)
[2023-02-18 02:19] LABS: Appearance Urine Slightly Cloudy (Clear); Bilirubin Urine Negative (Negative); Blood Urine 2+ (Negative); Color Urine Red; Glucose Urine UA Negative (Negative); Ketones Urine Negative (Negative); Leukocyte Esterase Urine Negative (Negative); Nitrite Urine Negative (Negative); Protein Urine 3+ (Negative); Urobilinogen Urine Negative (Negative)
[2023-02-18 02:22] LABS: Bacteria Urine Negative (Negative); Epithelial Cell Urine 0-5 /lpf (0-5); RBC Urine >30 /hpf (0-4); WBC Urine 0-5 /hpf (0-5)
[2023-02-18 05:19] LABS: BUN Creatinine Ratio 10.4 (10-20); Calcium 9.1 mg/dl (8.6-10.3); Creatinine Clr Calc Pharmacy 24.2 ml/min; Est GFR (African American) 26.2 ml/min; Est GFR (Non-African American) 22.6 ml/min; Magnesium 2.2 mg/dl (1.7-2.4); Potassium 4.6 mmol/L (3.5-5.1)
[2023-02-18 05:25] LABS: Hemoglobin 13.1 g/dl (14.0-18.0); Mean Corpuscular Hemoglobin 29.8 pg (25.0-34.0); Mean Corpuscular Hgb Conc 33.6 g/dL (32.0-36.0); Mean Corpuscular Volume 88.8 fL (80.0-100.0); Mean Platelet Volume 11.2 fL (9.4-12.4); Platelet Count 256 K/uL (130-400); RDW Coefficient of Variation 12.5 % (11.5-14.5); RDW Standard Deviation 40.6 fL (36.4-46.3); Red Blood Count 4.39 M/uL (4.70-6.10); White Blood Count 7.89 K/ul (4.8-10.8)
[2023-02-18] MEDS ORDERED: cefTRIAXone SODIUM 2,000 MG in DEXTROSE 5 % MINI-B 50 ML IV SCH (06:00)
[2023-02-18] MEDS ORDERED: MULTIVITAMIN TAB PO SCH (09:00)
[2023-02-18] MEDS ORDERED: ENOXAPARIN INJ 40 MG/0.4 ML SYR SQ SCH (09:00)
--- NOTE | 2023-02-18 12:29 | Hospitalist Progress Note ---
Date of Service February 18, 2023 Assessment & Plan (1) Urinary retention: (2) Acute kidney injury: (3) BPH (benign prostatic hyperplasia): (4) Hyperlipidemia: Plan Deepak is a 78 year-old male with a PMH of BPH and HLD, who presents to emergency room with abdominal pain and distention. Now stable, improving with insertion of Sanders catheter, and admitted for further evaluation of urinary retention and GEE secondary to bladder outlet obstruction and BPH. Urinary Retention/GEE/Abdominal pain/BPH: -GEE and abdominal pain possibly secondary to urinary retention/bladder outlet obstruction d/t BPH -Bladder scan was completed with a postvoid residual of greater than 599. S/p Sanders catheter insertion on arrival. Tamsulosin 0.8 mg on admission. Immediate, then gradual improvement in presenting symptoms -Last Creatinine 2.6 (improved from 3.51), trending downwards (baseline 0.9- 1.2). BUN: 27 -Upon admission, red urine noted in Sanders catheter. Repeat UA showed 2+ hematuria and 3+ proteinuria. Urine culture is pending. Hematuria likely secondary to catheter placement. -Urology consulted - recommended maintaining the Sanders catheter for the present time -Continue home Tamsulosin 0.8 mg PO at bedtime. Continue IV Ceftriaxone 2 g every 24 hours -Serial labs to assess for renal improvement -Avoid nephrotoxic medications Hyperlipidemia: -Continue Ezetimibe 10 mg daily and Pravastatin 10 mg daily Admission and Anticipated Discharge Date Admission Date: February 17, 2023 Omar Sotelo is a 78 year-old male with a past medical history significant for BPH with lower urinary tract symptoms, hyperlipidemia, diverticulitis, and rectal bleeding who presented to the ED 02/17/23 with lower abdominal pain symptoms that had been ongoing and worsening since Wednesday evening on 02/14/23. Patient reports that he had been experiencing worsening urinary frequency, polyuria, and nocturia for the past 3 weeks and on Wednesday night experienced an episode of new onset RLQ abdominal pain. He describes the pain as being a dull/aching pain and rated the pain around a 6 in severity and is associated w ith some nausea but no vomiting. He reports that the pain started in his RLQ and gradually radiated to his entire lower abdomen. He is not aware of any aggravating factors but notes that when is pre-occuppied such as when he is exercising, the pain becomes less noticeable and is less bothersome. He lives in [place] with his and currently his son and [id number]. 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 He follows up with Dr. Benjamin of Urology for his BPH. He reports feeling better today since the abdominal pain has resolved. However, he had difficulty falling asleep last night due to a burning sensation in his penis which initially started after the Sanders catheter was inserted. He states that he has a history of urinary infections when it comes to having a catheter placed and that he usually requires antibiotic therapy with catheters. He denies any fevers, chills, cough, sore throat, SOB, chest pain, abdominal pain, weak urinary stream, or back pain. Review of Systems Review of Systems: Negative except those stated in the HPI. Physical Exam Physical Exam: Vitals: BP: 166/87 (56 bpm); RR: 12; Temp: 36.7; O2%: 98% General: Well-appearing and not in acute distress Eyes: PERRLA. Extraocular movements are intact Respiratory: Lungs are clear to auscultation bilaterally Cardiovascular: Regular rate and rhythm. No murmurs, rubs, or gallops Abdominal: Soft, nontender and nondistended. Normoactive bowel sounds in all 4 quadrants Pelvic: No suprapubic tenderness Back: No spine tenderness on palpation. No CVA tenderness Extremities: No lower leg extremity edema. Radial pulses 2+ bilaterally. Capillary refill < 2 seconds in the upper extremities Results & Data Results & Data Vital Signs (Past 12 Hours) Vital Signs Pulse Pulse Resp BP Pulse Ox O2 Del Method 02/18/23 06:09 Room Air 02/18/23 05:50 56 L 12 02/18/23 05:40 71 13 02/18/23 05:30 53 L 14 02/18/23 05:20 52 L 24 02/18/23 05:10 48 L 17 02/18/23 05:00 49 L 14 02/18/23 04:50 45 L 16 02/18/23 04:40 47 L 16 02/18/23 04:30 56 L 17 02/18/23 04:20 74 19 02/18/23 04:10 50 L 17 02/18/23 04:00 53 L 16 02/18/23 03:58 65 16 166/87 H 98 Room Air 02/18/23 03:50 51 L 17 02/18/23 03:40 52 L 19 02/18/23 03:30 52 L 17 02/18/23 03:20 70 13 02/18/23 03:10 53 L 16 02/18/23 03:00 50 L 14 02/18/23 02:50 49 L 16 02/18/23 02:40 52 L 17 02/18/23 02:30 82 23 02/18/23 02:20 71 17 02/18/23 02:10 56 L 18 02/18/23 02:00 56 L 16 02/18/23 01:50 54 L 18 02/18/23 01:40 58 L 22 02/18/23 01:34 60 19 02/18/23 01:33 64 14 02/18/23 00:50 67 17 02/18/23 00:30 66 15 02/18/23 00:20 52 L 17 02/18/23 00:10 55 L 18 02/18/23 00:00 52 L 14 02/17/23 23:50 67 20 02/17/23 23:40 66 14 02/17/23 23:30 53 L 16 02/17/23 23:20 52 L 16 02/17/23 23:10 68 17 02/17/23 23:00 69 19 02/17/23 22:50 66 18 02/17/23 22:40 47 L 17 94 02/17/23 22:30 48 L 16 95 02/17/23 22:28 49 L 16 95 02/17/23 22:27 48 L 02/17/23 22:25 49 L 21 172/87 H 96 Room Air (3) BPH (benign prostatic hyperplasia) Lower urinary tract symptom detail: urinary retention Lower urinary tract symptom presence: symptoms present Qualified Code(s): N40.1 - Benign prostatic hyperplasia with lower urinary tract symptoms; R33.8 - Other retention of urine
--- NOTE | 2023-02-18 15:20 | Discharge Summary ---
Date of Service February 18, 2023 Admission HPI Per Admitting Provider Deepak is a 78-year-old man with a past medical history of BPH with LUTS, HLD, rectal bleed, and diverticulitis, who presented to the emergency room with lower abdominal pain symptoms that have worsened since Wednesday evening. Patient has been having similar but intermittent abdominal pain and increasing urinary frequency x3 weeks leading up to Wednesday evening. He sees Dr. Benjamin of urology for his BPH. ROS + urinary frequency, weak urinary stream, abdominal distention, and mild bilateral lower back pain. He denies pain with urination, hematuria, testicular pain. In the ED, vitals stable, within normal limits. Labs revealed a mild hyperkalemia (K +5.2), and GEE with Cr-3.51 (baseline 0.9-1.2). Urinalysis was negative for leuk esterase, nitrites, blood, WBCs, or bacteria. CT A/P revealed a distended bladder, mild bilateral hydro utero nephrosis without an obstructing stone identified, and prostatomegaly. He was amenable to reinsertion of a Sanders catheter, following which he began to experience immediate relief. Hospitalist service was consulted for admission. Admission Exam Per Admitting Provider General: No acute distress HEENT: PERRLA. Normal conjunctiva, anicteric sclera. Oropharynx normal. Respiratory: Normal respiratory effort, CTABL. Cardiovascular: RRR without murmurs, gallops, or rubs. No pedal edema. GI: Soft abdomen. Mild right-sided, suprapubic tenderness to palpation. No guarding or rebound. : Sanders catheter in place, draining clear-yellow fluid. Neuro: Alert and oriented x3. Principal Diagnosis acute urinary retention Discharge Exam General: Well-appearing and not in acute distress Eyes: PERRLA. Extraocular movements are intact Respiratory: Lungs are clear to auscultation bilaterally Cardiovascular: Regular rate and rhythm. No murmurs, rubs, or gallops Abdominal: Soft, nontender and nondistended. Pelvic: No suprapubic tenderness : indwelling urinary catheter in place with gross hematuria noted Back: No spine tenderness on palpation. Extremities: No lower leg extremity edema. clinically well perfused Neuro: alert and oriented Psych: appropriate mood and affect Discharge Data Allergies Allergy/AdvReac Type Severity Reaction Status Date / Time No Known Allergies Allergy Verified 02/17/23 20:03 Consultations 02/17/23 20:28 ED Decision to Admit Stat 02/17/23 22:27 Consult Urology Routine Ordered Studies Abdomen/Pelvis CT 02/17/23 18:26 FINDINGS: Lung bases: Unremarkable. No mass. No consolidation. ABDOMEN: Liver: Tiny hypodensities in the liver are too small to definitively characterize. Gallbladder and bile ducts: Hyperdense material in the gallbladder may represent artifact versus stones/sludge. No ductal dilation. Pancreas: Unremarkable. No ductal dilation. Spleen: Unremarkable. No splenomegaly. Adrenals: Unremarkable. No mass. Kidneys and ureters: Left pelvic kidney. Mild bilateral hydroureteronephrosis. No obstructing stone identified. Small left renal cyst. Stomach and bowel: Evaluation of the stomach is limited by underdistention. No mucosal thickening. No bowel obstruction or inflammation. PELVIS: Appendix: Normal appendix. Bladder: Distended bladder. Trabeculations and bladder diverticula. Please correlate with urinalysis if concerned for cystitis. No stones. Reproductive: Prostatomegaly. ABDOMEN and PELVIS: Intraperitoneal space: Small amount of fluid in the right abdomen. Bones/joints: No acute fracture. No dislocation. Soft tissues: Tiny fat-containing umbilical hernia. Vasculature: Phleboliths in the pelvis. Atherosclerotic changes of the vasculature. No aortic aneurysm. Lymph nodes: Unremarkable. No enlarged lymph nodes. IMPRESSION: 1. Distended bladder. Trabeculations and bladder diverticula. Please correlate with urinalysis if concerned for cystitis. 2. Left pelvic kidney. Mild bilateral hydroureteronephrosis. No obstructing stone identified. 3. Prostatomegaly. 4. Small amount of fluid in the right abdomen. 02/18/23 04:29 02/18/23 04:29 Hospital Course (1) Urinary retention: 78 M with PMH BPH, HLD, who presents to emergency room with abdominal pain, distention. Now stable, improving with insertion of Sanders catheter, admitted for further evaluation of urinary retention, GEE secondary to bladder outlet obstruction and BPH. Urinary retention/GEE/BPH Post-renal GEE in the setting of urinary retention 2/2 to BPH. Cr of 3.51 (baseline 0.9-1.2) on arrival. Afebrile. No leukocytosis. UA negative for infection. Coude catheter placed. Immediate improvement in symptoms. Gross hematuria noted - CTX started. Urology consult - recommend d/c with indwelling urinary catheter and abx - cefdinir. They will f/u outpatient. GEE improved to 2.6. Would recheck BMP tomorrow. Avoid nephrotoxins. Dyslipidemia Takes ezetimibe 10 mg daily, pravastatin 10 mg daily. Continue home regimen (2) Acute kidney injury: (3) BPH (benign prostatic hyperplasia): (4) Dyslipidemia: Total Time Total Time Spent Total Time Spent (In Minutes): See attending attestation Discharge Plan Discharge Items Patient Disposition: Home - Self-Care Reason For Visit: ABDOMINAL PAIN Discharge Diagnosis: urinary retention Activity: Per Instructions section Non-emergency contact: Primary Care Provider and Urologist Call non-emergency contact if: you have any medication questions, your symptoms worsen and your temperature is above 101.5 Follow-up/Referrals: Dayton Benjamin MD [Physician] - Alayna Argueta MD [Primary Care Provider] - Diet: Regular Ambulatory Orders: Basic Metabolic Panel (Routine) Timeframe: 1 Day Location: Determined by Patient Ordered By: Ina Kaur Attending Provider Instructions: You were admitted to the hospital for urinary retention. You were with a coude catheter to drain your bladder. This is likely in the setting of prostate enlargement. We will discharge you with the catheter in place. We will treat with empiric antibiotics while you have the catheter in place. You will be seen by urology on an outpatient basis. Contact them to schedule that appointment. A discharge summary will be sent to your primary care physician to ensure continuity of care. Please bring this discharge summary with you to your next office appointment so that your provider can review it at that time. Follow-up appointments: Make a follow-up appointment with your PCP within the next week. It is very important that you follow up with them shortly after discharge from the hospital. Keep all your follow-up appointments as already scheduled. If you cannot make an appointment, notify your provider. Medications: Your medication list has been reviewed and reconciled upon discharge to ensure accuracy and continuity of care. An updated list of all your medications is included with your hospital discharge paperwork. Please review this list closely, and make note of any changes. CONTACT YOUR PRIMARY CARE PROVIDER if you experience any of the following: fevers or chills Difficulty following your treatment plan, or difficulty taking medications CALL 911 OR GO TO THE EMERGENCY DEPARTMENT if you experience any of the following: Sudden, severe abdominal pain or nausea/vomiting Severe chest pain, or chest pain that radiates (moves) to your jaw or arm Sudden, severe shortness of breath or difficulty breathing Thank you for allowing us to participate in your care Pending Studies at Discharge: No Stand-Alone Forms: My [facility], Smoking Cessation Medications and DC Order Prescriptions: New cefdinir 300 mg capsule 300 mg PO BID 10 Days Qty: 20 0RF Continued pravastatin 10 mg tablet 10 mg PO QDD tamsulosin 0.4 mg capsule 0.8 mg PO HS Qty: 180 3RF Rx Instructions: 2 tablet dose ezetimibe 10 mg tablet 10 mg PO QDD multivitamin Tablet 1 tab PO DAILY Discharge Orders: Discharge Order (Routine); Ordered 02/18/23 Ordered By: Ina Álvarez Admission Data Admit Date/Time: 02/17/23 21:20 Attending Provider: Verena Pak Admit Provider: Jimi Ball Primary Care Provider: Alayna Argueta Other Providers: Jonny Jalloh; José Miguel Nix; Brian Sheikh; Dayton Benjamin; Dorie Clemons; Buddy Barth; Denise Cevallos; Kassidy Wei; Brian Rosales; Anel Lucas; Deepak López; Arnaldo Gay Other Interventions: Discharge Summary Assessment (RN) Last Done: 02/18/23 16:00 Supervising Physician Co-Signing Physician Notes Resident Physician Supervision Note: I independently interviewed and examined the patient and verified the schroeder history and physical, reviewed labs and image studies and agree with resident findings and care plan. GEE due to BPH with LUTS -coude catheter placed by urology. -Improved creatinine to 2.6. to have follow up creatinine as outpatient in am. -continue flomax. -home on cefdinir. pending urine culture results on discharge. Resident Activity Tracking Resident Involvement: Resident Care Provided Care Provided: Adult Hospital Medicine
[2023-02-18] MEDS ORDERED: PRAVASTATIN SOD 10 MG TAB PO SCH (16:30)
[2023-02-18] MEDS ORDERED: EZETIMIBE 10 MG TAB PO SCH (16:30)
--- NOTE | 2023-02-18 18:22 | Urology Progress Note ---
Date of Service February 18, 2023 Assessment & Plan (1) Urinary retention: (2) Acute kidney injury: Plan 78yo/M admitted with urinary retention and GEE. Afebrile and hemodynamically stable. Labs reviewedWBC 7.89, hemoglobin 13.1, creatinine downtrending 3.512.6 today. Urinary retention is managed with a Sanders catheter. Recommend maintaining catheter for at least 7-10 days to allow for bladder rest and decompression. Continue tamsulosin. Will arrange outpatient follow-up with our service for voiding trial. Continue to trend labs. Urology will follow peripherally. Admission and Anticipated Discharge Date Admission Date: February 17, 2023 Subjective Patient examined at bedside in the ED. Awake, resting bed on arrival. No acute distress. Sanders intact, drain clear yellow urine. Patient is eager to go home Review of Systems Constitutional: as per Subjective / HPI Genitourinary: + as per Subjective / HPI Physical Exam Constitutional: no acute distress Respiratory: no respiratory distress and no labored breathing Skin: No visible rashes or lesions to exposed skin areas Neurologic: awake Psychiatric: A+Ox3, euthymic affect Genitourinary: Sanders intact Results & Data Vital Signs (Past 12 Hours) Vital Signs Pulse Pulse Resp BP Pulse Ox O2 Del Method 02/18/23 06:09 Room Air 02/18/23 05:50 56 L 12 02/18/23 05:40 71 13 02/18/23 05:30 53 L 14 02/18/23 05:20 52 L 24 02/18/23 05:10 48 L 17 02/18/23 05:00 49 L 14 02/18/23 04:50 45 L 16 02/18/23 04:40 47 L 16 02/18/23 04:30 56 L 17 02/18/23 04:20 74 19 02/18/23 04:10 50 L 17 02/18/23 04:00 53 L 16 02/18/23 03:58 65 16 166/87 H 98 Room Air 02/18/23 03:50 51 L 17 02/18/23 03:40 52 L 19 02/18/23 03:30 52 L 17 02/18/23 03:20 70 13 02/18/23 03:10 53 L 16 02/18/23 03:00 50 L 14 02/18/23 02:50 49 L 16 02/18/23 02:40 52 L 17 02/18/23 02:30 82 23 02/18/23 02:20 71 17 02/18/23 02:10 56 L 18 02/18/23 02:00 56 L 16 02/18/23 01:50 54 L 18 PG Care Time/CCT Total # of Minutes Spent Total Time Spent with Patient: Total time spent is greater than 50% in coordination of care (as documented) at patient's floor/unit and/or counseling patient: Coding Level of Care Code 57342 SUB INP/OBS CARE 2/35MIN Diagnoses Urinary retention R33.9 Acute kidney injury N17.9
[2023-02-18] MEDS ORDERED: TAMSULOSIN HCL 0.4 MG CAP PO SCH (21:00)
--- NOTE | 2023-02-22 21:25 | Billing Data ---
Date of Service February 22, 2023 Coding Level of Care Code 09914 INT INP/OBS CARE
== END 2023-02-18 16:05 | disposition home or self-care (01) ==
LOC: EDINP 15:38 → ED 15:38 → SUATTDRO 21:20 → EDINP 02-18 01:52
DX: E78.5 Hyperlipidemia, unspecified; R33.9 Retention of urine, unspecified; Z79.899 Other long term (current) drug therapy; R35.0 Frequency of micturition; N40.1 Benign prostatic hyperplasia with lower urinary tract symptoms; N17.9 Acute kidney failure, unspecified